=== PATIENT | female | born 1965 | race Caucasian/White ===

== ENCOUNTER → 2017-05-13 | Outpatient (CLI) | payer BC ==
--- NOTE | 2017-05-15 10:37 | MM ---
Reason for exam: screening (asymptomatic). Last mammogram was performed 3 years and 11 months ago. History: Patient is postmenopausal and is nulliparous. Physical Findings: A clinical breast exam by your physician is recommended on an annual basis and results should be correlated with mammographic findings. MG Screening Mammo w CAD Bilateral CC and MLO view(s) were taken. Prior study comparison: June 21, 2013, bilateral digital screening mammo w/CAD. June 03, 2012, mammogram, performed at [facility]. The breast tissue is heterogeneously dense. This may lower the sensitivity of mammography. Finding: There are stable typically benign milk of calcium, segmental calcifications in the upper quadrant, posterior position of the left breast seen on MLO view. No significant changes in finding since June 21, 2013 and June 03, 2012. ASSESSMENT: Benign, BI-RAD 2 RECOMMENDATION: Routine screening mammogram of both breasts in 1 year.
== END | disposition home or self-care (01) ==
LOC: RADMAMWWP 07:33
PROVIDERS: ATTEND Family Medicine
DX: Z12.31 Encounter for screening mammogram for malignant neoplasm of breast (principal)

== ENCOUNTER 2017-05-29 10:20 | Day surgery (SDC) | payer BC ==
[2017-05-27 09:57] VITALS: BMI 28.8
[~2017-05-29 10:20] MED LIST: LACTATED RINGERS 1,000 ML IV SCH
[2017-05-29 12:25] VITALS: TEMP 97.8
[2017-05-29] MEDS ORDERED: LIDOCAINE 1% 20 ML VIAL (10MG/ML) FOR IV START INTRADERMA ONE (12:36)
[2017-05-29] MEDS ORDERED: PROPOFOL 10 MG/ML 20 ML VIAL IV ONE (13:25)
--- NOTE | 2017-05-29 13:28 | P.GSHP ---
History of Present Illness H&P Date: 05/29/17 Chief Complaint: Screening colonoscopy This a 48-year-old female who is referred from Dr. Rosado. Patient presents today for screening colonoscopy. Past Medical History Past Medical History: No Reported History History of Any Multi-Drug Resistant Organisms: None Reported Past Surgical History: Hysterectomy Additional Past Surgical History / Comment(s): COLONOSCOPY Past Anesthesia/Blood Transfusion Reactions: Motion Sickness, Postoperative Nausea & Vomiting (PONV) Smoking Status: Never smoker - Past Family History Father Family Medical History: Cancer Sister(s) Family Medical History: Cancer Medications and Allergies Home Medications Medication Instructions Recorded Confirmed Type Cyclobenzaprine [Flexeril] 10 mg PO HS PRN 05/27/17 05/29/17 History traMADol HCL [Ultram] 50 mg PO Q6HR PRN 05/27/17 05/29/17 History Allergies Allergy/AdvReac Type Severity Reaction Status Date / Time No Known Allergies Allergy Verified 05/29/17 12:25 Surgical - Exam Vital Signs Temp Pulse Resp BP Pulse Ox 97.8 F 89 18 139/66 100 05/29/17 12:24 05/29/17 12:24 05/29/17 12:24 05/29/17 12:24 05/29/17 12:24 - General well developed, no distress - Eyes PERRL - ENT normal pinna - Neck no masses - Respiratory normal expansion - Cardiovascular Rhythm: regular - Abdomen Abdomen: soft, non tender Assessment and Plan Plan: We'll perform screening colonoscopy.
--- NOTE | 2017-05-29 13:47 | P.OP ---
Date of Procedure: 05/29/17 Preoperative Diagnosis: Screening colonoscopy Postoperative Diagnosis: Normal colon Procedure(s) Performed: colonoscopy Anesthesia: MAC Surgeon: Miles Reed Pathology: none sent Condition: stable Disposition: PACU Description of Procedure: PROCEDURE: The patient was placed on the endoscopy table in the lateral position. Digital rectal examination was performed which revealed no abnormalities. The prostate was symmetrical without nodules. Flexible colonoscope was then placed in the patient's anus and passed throughout the entire colon. The ileocecal valve was visualized. The cecum, ascending, transverse, descending and sigmoid colon were normal. The rectum was normal as well. There were no masses, polyps or diverticula noted in the entire colon. SUMMARY OF FINDINGS: Normal colonoscopy.
[2017-05-29 13:55] VITALS: RESP 16
[2017-05-29 14:08] VITALS: BP 139/79; PULSE 65
== END 2017-05-29 14:36 | disposition home or self-care (01) ==
LOC: ORWHC2ENDO 10:20
PROVIDERS: ATTEND Surgery
DX: Z12.11 Encounter for screening for malignant neoplasm of colon (principal); K62.1 Rectal polyp; Z90.710 Acquired absence of both cervix and uterus; Z79.899 Other long term (current) drug therapy
CPT/HCPCS: 45380; 88305; J2704

== ENCOUNTER → 2018-07-21 | Outpatient (CLI) | payer BC ==
--- NOTE | 2018-07-23 08:56 | MM ---
Reason for exam: screening (asymptomatic). Last mammogram was performed 1 year and 2 months ago. History: Patient is postmenopausal and is nulliparous. Physical Findings: A clinical breast exam by your physician is recommended on an annual basis and results should be correlated with mammographic findings. MG Screening Mammo w CAD Bilateral CC and MLO view(s) were taken. Prior study comparison: May 13, 2017, bilateral MG screening mammo w CAD. June 21, 2013, bilateral digital screening mammo w/CAD. The breast tissue is heterogeneously dense. This may lower the sensitivity of mammography. There is chronic nodularity in the left breast posterior inferiorly. No significant changes when compared with prior studies. ASSESSMENT: Benign, BI-RAD 2 RECOMMENDATION: Routine screening mammogram of both breasts in 1 year.
== END | disposition home or self-care (01) ==
LOC: RADMAMWWP 15:08
PROVIDERS: ATTEND Obstetrics & Gynecology
DX: Z12.31 Encounter for screening mammogram for malignant neoplasm of breast (principal)
CPT/HCPCS: 77067

== ENCOUNTER → 2020-03-01 | Outpatient (CLI) | payer BC ==
[2020-03-01 12:19] LABS: Basophils % (A) 0 %; Eosinophils % (A) 0 %; HCT 43.5 % (34.0-46.0); HGB 13.9 gm/dL (11.4-16.0); Lymphocytes # (A) 1.3 k/uL (1.0-4.8); Lymphocytes % (A) 18 %; MCH 31.6 pg (25.0-35.0); MCHC 31.9 g/dL (31.0-37.0); Mean Platelet Volume 7.6; Monocytes # (A) 0.3 k/uL (0-1.0); Monocytes % (A) 4 %; Neutrophils # (A) 5.5 k/uL (1.3-7.7); Neutrophils % (A) 76 %; Platelet Count 214 k/uL (150-450); RBC 4.39 m/uL (3.80-5.40); RDW 13.2 % (11.5-15.5); WBC 7.2 k/uL (3.8-10.6)
[2020-03-01 12:28] LABS: Potassium 4.7 mmol/L (3.5-5.1)
== END | disposition home or self-care (01) ==
LOC: LABPAT 10:24
PROVIDERS: ATTEND Orthopaedic Surgery
DX: Z01.818 Encounter for other preprocedural examination (principal); M23.92 Unspecified internal derangement of left knee
CPT/HCPCS: 36415; 80051; 85025; 93005

== ENCOUNTER 2020-03-15 06:02 | Day surgery (SDC) | payer BC ==
--- NOTE | 2020-03-14 13:50 | HP ---
HISTORY AND PHYSICAL DATE OF SURGERY: 03/15/2020 Constance Toscano is a 54-year-old patient seen with progressive left knee pain. We discussed options for treatment. She elected to proceed with left knee arthroscopy. Consent regarding the procedure was obtained. PAST MEDICAL HISTORY: Noncontributory. PAST SURGICAL HISTORY: Appendectomy, hysterectomy. DAILY MEDICATIONS: None. ALLERGIES: None. SOCIAL HISTORY: She denies tobacco use. PHYSICAL EVALUATION OF THE LEFT KNEE: Range of motion is -2/3-120. Mild effusion. Tenderness along the medial joint line. Positive medial Serena's. Ligaments stable. Hip rotation without pain. Distal neurovascular exam intact. RADIOGRAPHS OF THE LEFT KNEE: Revealed osteoarthritic changes. Left knee MRI revealed medial meniscal tear and osteoarthritic changes. IMPRESSION: 1. Internal derangement, left knee with medial meniscal tear. 2. Left knee osteoarthritis. PLAN: Left knee arthroscopy with partial meniscectomy, partial synovectomy and debridement. MMODL / IJN: [id number] /
[~2020-03-15 06:02] MED LIST changes: +DEXAMETHASONE SOD PHOSPHATE 10 MG/ML 1 ML VIAL IV ONE; +LIDOCAINE 1% (10MG/ML) FOR IV START INTRADERMA PRN; +ONDANSETRON 4 MG/2 ML VIAL IVP ONE
[2020-03-15] MEDS ORDERED: ONDANSETRON 4 MG/2 ML VIAL ONE (06:59)
[2020-03-15] MEDS ORDERED: SCOPOLAMINE 1.5MG/72HR PATCH TRANSDERM ONE (07:00)
[2020-03-15] MEDS ORDERED: LIDOCAINE 1% INJ 10MG/ML (20 ML MDV) ONE (07:20)
[2020-03-15] MEDS ORDERED: fentaNYL (PF) 50 MCG/ML 2 ML AMP ONE (07:20)
[2020-03-15] MEDS ORDERED: PROPOFOL 10 MG/ML 20 ML VIAL IV ONE (07:20)
[2020-03-15] MEDS ORDERED: MIDAZOLAM 2 MG/2 ML VIAL ONE (07:20)
[2020-03-15] MEDS ORDERED: BUPIVACAINE (PF) 0.25% 30 ML VIAL INTRAARTIC ONE ×2 (07:24→07:58)
[2020-03-15 08:12] VITALS: TEMP 96.9
[2020-03-15] MEDS: HYDROmorphone 0.5 MG/0.5 ML SYRINGE IVP PRN ×3 (08:16→08:44)
--- NOTE | 2020-03-15 08:17 | P.OP ---
Date of Procedure: 03/15/20 Preoperative Diagnosis: Internal derangement left knee Postoperative Diagnosis: 1. Tear medial meniscus left knee 2. Grade 4 chondromalacia medial femoral condyle left knee 3. Grade 2/3 chondromalacia patella left knee 4. Reactive synovitis medial, lateral and suprapatellar compartments left knee Procedure(s) Performed: 1. Arthroscopic partial medial meniscectomy left knee 2. Arthroscopic chondroplasty medial femoral condyle left knee 3. Arthroscopic chondroplasty patella left knee 4. Arthroscopic partial synovectomy medial, lateral and suprapatellar compartments left knee Anesthesia: EVETTEA, local Surgeon: Shayne Bernard Estimated Blood Loss (ml): 5 Pathology: none sent Condition: stable Disposition: PACU Indications for Procedure: 54 -year-old patient seen with progressive left knee pain. After treatment options were discussed, she elected to proceed with arthroscopy. Operative Findings: See description of procedure Description of Procedure: Patient was taken to the operative suite. Patient underwent a general anesthetic by the department of anesthesia. Patient was given preoperative antibiotics. The left lower extremity was placed in a well-padded arthroscopic leg jean. The left leg was prepped and draped in the normal sterile orthopedic fashion. A lateral parapatellar and suprapatellar incision was made. Trochars were inserted. Arthroscopy was initiated. Suprapatellar pouch revea led diffuse thick reactive synovitis. The patellofemoral joint appeared to articulate congruently. There was grade 2/3 chondromalacia of the patella and femoral sulcus with some osteochondral tears present. The scope was guided into the medial gutter. No loose bodies or plica were identified. The scope was then guided into the medial compartment. A medial parapatellar incision was made. Trocar inserted followed by probe. There was a complex tear posterior horn medial meniscus. There were grade 4 chondromalacia changes of both the medial femoral condyle and tibial plateau with areas of exposed bone as well as some areas of osteochondral tearing. There was thick reactive synovitis anteriorly. I performed a partial medial meniscectomy. I performed a chondroplasty of the medial femoral condyle. I performed a partial synovectomy decompressing the thick reactive synovitis. The residual meniscus was stable. There was good decompression of the synovitis. Scope and probe were then guided into the intercondylar notch. Cruciates were identified, probed and found to be stable. The scope and probe were then guided into lateral compartment. There were grade 1 chondromalacia changes of the lateral compartment with no osteochondral tears. The meniscus was stable. There was thick reactive synovitis anteriorly. I performed a partial synovectomy. There was good decompression of the synovitis. The scope was in guided back into the suprapatellar compartment. I introduced a motorized shaver into the suprapatellar compartment. I debrided some piecemeal fragments of meniscus I encountered. I performed a chondroplasty of the patella gained down to stable osteochondral tissue. I performed a partial synovectomy. Shaver was removed. I took one more look on the entire knee, no residual debris. Instruments were now removed from the joint. The joint was infiltrated with .25% Marcaine. Steri-Strips were applied to the portal sites. Sterile dressings were applied. The patient was placed into a TERI hose. No tourniquet was utilized. The patient was awakened, transferred to a bed and taken to recovery stable satisfactory condition.
[2020-03-15 08:40] VITALS: RESP 16
[2020-03-15] MEDS ORDERED: KETOROLAC 30 MG/ML 1 ML VIAL IVP ONE (08:40)
[2020-03-15] MEDS ORDERED: HYDROcodone/APAP 5-325MG 1 EACH TAB ONE (09:15)
[2020-03-15] MEDS ORDERED: HYDROcodone/APAP 5-325MG 1 EACH TAB PO ONE (09:16)
[2020-03-15 09:27] VITALS: BP 135/64; PULSE 65
== END 2020-03-15 10:12 | disposition home or self-care (01) ==
LOC: OR 06:02
PROVIDERS: ATTEND Orthopaedic Surgery
DX: S83.242A Other tear of medial meniscus, current injury, left knee, initial encounter (principal); X58.XXXA Exposure to other specified factors, initial encounter; M22.42 Chondromalacia patellae, left knee; M17.12 Unilateral primary osteoarthritis, left knee; M65.862 Other synovitis and tenosynovitis, left lower leg; Z90.710 Acquired absence of both cervix and uterus; Z98.890 Other specified postprocedural states; Z79.1 Long term (current) use of non-steroidal anti-inflammatories (NSAID); Z79.891 Long term (current) use of opiate analgesic; Z79.899 Other long term (current) drug therapy
CPT/HCPCS: 29881; 29876; J2250; J1100; J0690; J2405; J2001; J3010; J1885; J2704; J1170

== ENCOUNTER → 2020-07-24 | Outpatient (CLI) | payer BC | END | disposition home or self-care (01) | LOC: LABWHC1 16:41 | PROVIDERS: ATTEND Emergency Medicine | DX: Z20.828 Contact with and (suspected) exposure to other viral communicable diseases (principal) | CPT/HCPCS: U0003; C9803 ==

== ENCOUNTER → 2021-05-06 | Outpatient (CLI) | payer BC ==
[2021-05-06 11:15] LABS: Basophils # (A) 0.1 k/uL (0-0.2); Basophils % (A) 1 %; Eosinophils # (A) 0.1 k/uL (0-0.7); Eosinophils % (A) 1 %; HCT 45.6 % (34.0-46.0); HGB 14.5 gm/dL (11.4-16.0); Lymphocytes # (A) 1.2 k/uL (1.0-4.8); Lymphocytes % (A) 18 %; MCH 30.1 pg (25.0-35.0); MCHC 31.9 g/dL (31.0-37.0); MCV 94.5 fL (80.0-100.0); Mean Platelet Volume 7.7; Monocytes # (A) 0.3 k/uL (0-1.0); Monocytes % (A) 5 %; Neutrophils # (A) 5.1 k/uL (1.3-7.7); Neutrophils % (A) 74 %; Platelet Count 215 k/uL (150-450); RBC 4.82 m/uL (3.80-5.40); RDW 12.2 % (11.5-15.5); WBC 6.9 k/uL (3.8-10.6)
[2021-05-06 11:32] LABS: Potassium 4.4 mmol/L (3.5-5.1)
== END | disposition home or self-care (01) ==
LOC: LABPAT 09:50
PROVIDERS: ATTEND Orthopaedic Surgery
DX: Z01.818 Encounter for other preprocedural examination (principal); G56.01 Carpal tunnel syndrome, right upper limb
CPT/HCPCS: 36415; 80051; 85025; 93005

== ENCOUNTER 2021-05-15 09:53 | Day surgery (SDC) | payer BC ==
[2021-05-13 16:04] VITALS: BMI 24.5
--- NOTE | 2021-05-14 19:00 | HP ---
HISTORY AND PHYSICAL REASON FOR ADMISSION: Surgery scheduled for 05/15/2021 HISTORY OF PRESENT ILLNESS: Constance Toscano is a 55-year-old patient seen with symptomatic right carpal tunnel syndrome. We discussed options. She elected to proceed with decompression right median nerve. Consent obtained. PAST MEDICAL HISTORY: Noncontributory. SURGICAL HISTORY: Appendectomy, hysterectomy. DAILY MEDICATIONS: Aleve, ibuprofen. ALLERGIES: None. SOCIAL HISTORY: She denies current tobacco use. PHYSICAL EXAMINATION: Physical evaluation of the right hand: She has a positive carpal compression and carpal Tinel's causing numbness and tingling throughout the median nerve distribution. There is some subjective decreased sensation throughout the median nerve distribution. There is no tenderness along the A1 carmela areas. There is a good radial pulse. There is good perfusion distally. RADIOGRAPHS: Radiographs of the right hand reveals some osteoarthritic changes. EMG right upper extremity carpal tunnel syndrome. IMPRESSION: Right carpal tunnel syndrome. PLAN: Decompression, right median nerve. Surgery scheduled 05/15/2021. MMODL / IJN: [id number] /
[~2021-05-15 09:53] MED LIST changes: -DEXAMETHASONE SOD PHOSPHATE 10 MG/ML 1 ML VIAL IV ONE; +HYDROmorphone 0.5 MG/0.5 ML SYRINGE IVP PRN
[2021-05-15 10:21] VITALS: TEMP 97.4
[2021-05-15] MEDS ORDERED: fentaNYL (PF) 50 MCG/ML 2 ML AMP IVP ONE (11:40)
[2021-05-15 11:46] VITALS: RESP 16
[2021-05-15] MEDS ORDERED: PROPOFOL 10 MG/ML 20 ML VIAL IV ONE (12:09)
[2021-05-15] MEDS ORDERED: fentaNYL (PF) 50 MCG/ML 2 ML AMP ONE (12:09)
[2021-05-15] MEDS ORDERED: MIDAZOLAM 2 MG/2 ML VIAL ONE (12:09)
[2021-05-15] MEDS ORDERED: BUPIVACAINE (PF) 0.25% 30 ML VIAL SQ ONE ×2 (12:10→12:26)
--- NOTE | 2021-05-15 12:44 | P.OP ---
Date of Procedure: 05/15/21 Preoperative Diagnosis: Right carpal tunnel syndrome Postoperative Diagnosis: Right carpal tunnel syndrome Procedure(s) Performed: Decompression right median nerve Anesthesia: MAC, local Surgeon: Shayne Bernard Estimated Blood Loss (ml): 1 Pathology: none sent Condition: stable Disposition: PACU Indications for Procedure: 55-year-old patient seen with symptomatic right carpal tunnel syndrome. After treatment options were discussed, she elected to proceed with decompression right median nerve. Operative Findings: See description of procedure Description of Procedure: Patient was taken to the operative suite. She received preoperative IV antibiotics. She underwent IV sedation by the department of anesthesia A well- padded tourniquet placed proximal right upper extremity. Right upper extremity prepped and draped in the normal sterile orthopedic fashion. I infiltrated the proposed incision site with 10 mL quarter percent plain Marcaine. When sufficient local analgesia was noted the extremity was elevated and tourniquet insufflated to 250. I made an incision beginning at the distal volar wrist crease extending distally approximately 3 cm in line with the fourth metacarpal sharply through skin. I dissected down to the palmar fascia. I now incised the palmar fascia. This exposed the transverse carpal ligament. I now made a small incision through the central portion of the transverse carpal ligament. I completely released proximally and distally with blunt Metzenbaums. There was good complete release of the transverse carpal ligament and good decompression of the nerve. There was good hemostasis. The skin margins were proximal nylon suture. I applied sterile dressings. The tourniquet was released with immediate capillary refill of all digits noted. The patient was transferred to recovery in stable condition.
[2021-05-15 13:16] VITALS: BP 143/80; PULSE 53
== END 2021-05-15 13:45 | disposition home or self-care (01) ==
LOC: OR 09:53
PROVIDERS: ATTEND Orthopaedic Surgery
DX: G56.01 Carpal tunnel syndrome, right upper limb (principal)
CPT/HCPCS: 64721; J2405; J0690; J3010

== ENCOUNTER → 2021-07-25 | Outpatient (CLI) | payer BC ==
--- NOTE | 2021-07-25 15:22 | XR ---
EXAMINATION TYPE: XR hand complete bilateral DATE OF EXAM: 07/25/2021 COMPARISON: NONE HISTORY: Palpable abnormalities TECHNIQUE: Three views are submitted. FINDINGS: A mild narrowing the first MCP joint. Mild narrowing of all DIP joints bilaterally. No definite erosi ve changes. Chronic appearing deformity of the ulnar styloid on the left. No acute fracture or disloc ation. IMPRESSION: 1. Mild arthropathy there is to be a hypertrophic arthropathy. No erosive changes.
== END | disposition home or self-care (01) ==
LOC: RADXRMAIN 14:53
PROVIDERS: ATTEND Family Medicine
DX: M19.041 Primary osteoarthritis, right hand (principal); M19.042 Primary osteoarthritis, left hand

== ENCOUNTER → 2021-10-28 | Outpatient (CLI) | payer BC ==
--- NOTE | 2021-10-28 15:48 | XR ---
EXAMINATION TYPE: XR chest 2V DATE OF EXAM: 10/28/2021 COMPARISON: NONE HISTORY: R05.3 TECHNIQUE: Frontal and lateral views of the chest are obtained. FINDINGS: There is no focal air space opacity, pleural effusion, or pneumothorax seen. The cardiac silhouette size is within normal limits. The osseous structures are intact, there is a slight spina l curvature. IMPRESSION: No acute cardiopulmonary process.
== END | disposition home or self-care (01) ==
LOC: RADXRMAIN 14:19
PROVIDERS: ATTEND Family Medicine
DX: R05.3 Chronic cough (principal)
CPT/HCPCS: 71046

== ENCOUNTER → 2022-01-23 | Outpatient (CLI) | payer BC ==
--- NOTE | 2022-01-23 16:43 | XR ---
EXAMINATION TYPE: XR Hip Limited LT DATE OF EXAM: 01/23/2022 COMPARISON: NONE INDICATION: Sciatic pain. TECHNIQUE: 2 views of the left hip. FINDINGS: Mild degenerative changes of the left hip joint with slight narrowing of the joint space and minimal osteophytosis. No definite acute fracture line identified. No femoral head dislocation. Suspected left pelvic phlebo liths. IMPRESSION: Mild degenerative changes as described above.
== END | disposition home or self-care (01) ==
LOC: RADXRMAIN 15:46
PROVIDERS: ATTEND Family Medicine
DX: M16.12 Unilateral primary osteoarthritis, left hip (principal)
CPT/HCPCS: 73501

== ENCOUNTER → 2022-02-12 | Outpatient (CLI) | payer BC ==
--- NOTE | 2022-02-13 05:08 | MR ---
EXAMINATION TYPE: MR lumbar spine wo/w con DATE OF EXAM: 02/12/2022 COMPARISON: 05/11/2012 HISTORY: Discitis lumbar. Low back pain that radiates down left leg. CONTRAST: Standard multiplanar, multisequence MRI departmental protocol images were obtained without contrast a nd with 7 mL intravenous Gadavist gadolinium contrast. Multiplanar multi echo imaging of the lumbar spine without and subsequently with intravenous contrast . There is narrowing at L3-4 disc space with anterior mild subluxation. The neural foramina are fairly well maintained. No compression fracture. No evidence of focal bone destruction. There is some mild r eactive edema on both sides of the L3-4 disc. Contrast images show no pathologic enhancement. The pos terior elements are intact. No evidence of any significant lumbar spinal stenosis. The sacroiliac denice nts are intact. No paraspinal mass. IMPRESSION: There is L3-4 degenerative disc space narrowing and mild degenerative spondylolisthesis which is new compared to the old exam. No fracture seen. No spinal stenosis. No evidence of any increased fluid or enhancement to suggest discitis.
== END | disposition home or self-care (01) ==
LOC: RADMRIMAIN 14:54
PROVIDERS: ATTEND Family Medicine
DX: M51.26 Other intervertebral disc displacement, lumbar region (principal); M43.16 Spondylolisthesis, lumbar region
CPT/HCPCS: 72158; A9585

== ENCOUNTER → 2022-04-05 | Outpatient (CLI) | payer BC ==
[2022-04-05 16:32] LABS: Basophils # (A) 0.05 X 10*3/uL (0.00-0.10); Basophils % (A) 0.6 %; Eosinophils # (A) 0.07 X 10*3/uL (0.04-0.35); Eosinophils % (A) 0.8 %; HCT 46.2 % (37.2-46.3); Immature Grans, Automated 0.2 %; Lymphocytes # (A) 1.42 X 10*3/uL (0.90-5.00); Lymphocytes % (A) 16.7 %; MCH 29.8 pg (27.0-32.0); MCHC 32.5 g/dL (32.0-37.0); MCV 91.7 fL (80.0-97.0); Mean Platelet Volume 10.6 fL (9.5-12.2); Monocytes # (A) 0.46 X 10*3/uL (0.20-1.00); Monocytes % (A) 5.4 %; NRBC Per 100 WBC 0 /100 WBCS (0.0-0.0); Neutrophils % (A) 76.3 %; Platelet Count 213 X 10*3/uL (140-440); RBC 5.04 X 10*6/uL (4.10-5.20); RDW 12.8 % (11.5-14.5); WBC 8.52 X 10*3/uL (4.50-10.00)
[2022-04-05 16:47] LABS: Erythrocyte Sedimentation Rate 1 mm/Hr (0-30)
[2022-04-05 16:51] LABS: ALT 18 U/L (8-44); AST 17 U/L (13-35); African American GFR (CKD) 94.2 (60.0-200.0); Albumin 4.4 g/dL (3.8-4.9); Albumin/Globulin Ratio 2.44 (1.60-3.17); Alkaline Phosphatase 55 U/L (41-126); Blood Urea Nitrogen 20.4 mg/dL (9.0-27.0); Carbon Dioxide 24.5 mmol/L (20.0-27.5); Chloride 106 mmol/L (96-109); Chol/HDL Ratio 2.65 Ratio; Globulin 1.8 g/dL (1.6-3.3); Glucose 92 mg/dL (70-110); LDL Cholesterol,Calculated 129.7 mg/dL (0.0-131.0); Non-African American GFR(CKD) 81.3 (60.0-200.0); Sodium 141 mmol/L (135-145); Total Protein 6.2 g/dL (6.2-8.2); VLDL Calculation 12.92 mg/dL (5.00-40.00)
== END | disposition home or self-care (01) ==
LOC: LABWHC1 11:28
PROVIDERS: ATTEND Family Medicine
DX: Z00.00 Encounter for general adult medical examination without abnormal findings (principal); I10 Essential (primary) hypertension; Z79.899 Other long term (current) drug therapy
CPT/HCPCS: 36415; 80053; 80061; 83036; 84443; 85025; 85652

== ENCOUNTER → 2024-03-30 | Outpatient (CLI) | payer BC ==
--- NOTE | 2024-04-26 20:19 | MR ---
Site ID synapse default Patient Constance Toscano ID [id number] Age/Gender: 58Y, F Order # N/A Procedure MR lumbar w/wo con Date 03/30/2024 2:39:18 PM EXAMINATION TYPE: MR lumbar spine wo/w con DATE OF EXAM: 04/08/2024 COMPARISON: MRI lumbar spine 02/12/2022, 05/11/2012 HISTORY: Lower back pain, sciatica right side TECHNIQUE: Multiplanar, multisequence images of the lumbar spine were acquired without and with 6.5 mL intraveno us Gadavist gadolinium contrast. Findings: Vertebral body heights are maintained. Grade 1 anterolisthesis of L3 on L4 is unchanged. Type II Micky c changes involving the inferior endplate of L3 and superior endplate of L4. Remaining bone marrow si gnal is unremarkable. The tip of the conus medullaris is at T12-L1 and signal intensity of the includ ed spinal cord is normal. Multilevel disc desiccation most pronounced at L2-L5. Individual levels: T12-L1: No evidence of disc herniation or significant central canal stenosis. No neuroforaminal steno sis. L1-L2: No evidence of disc herniation or significant central canal stenosis. No neuroforaminal stenos is. L2-L3: Broad-based disc bulge with minimal central canal stenosis. No neuroforaminal stenosis.. L3-L4: Grade 1 anterolisthesis with uncovering of the disc. Broad-based disc bulge with mild central canal stenosis. The mentum flavum buckling and facet arthropathy demonstrated mild bilateral neural f oraminal stenosis with left greater than right. L4-L5: Broad-based disc bulge with annular fissure. No significant central canal stenosis. Mild bilat eral facet arthropathy without neural foraminal stenosis. L5-S1: The disc is round along its posterior edge without rhonda herniation. No significant central ca nal stenosis. Bilateral facet arthropathy without significant neural foraminal stenosis. The post-contrast views do not show any pathological enhancement. IMPRESSION: Overall stable examination from MR lumbar spine 02/12/2022 with mild degenerative disc disease and gra de 1 anterolisthesis at L3 on L4.
== END | disposition home or self-care (01) ==
LOC: RADMRIMAIN 15:18
PROVIDERS: ATTEND Family Medicine
DX: M43.16 Spondylolisthesis, lumbar region (principal); M51.16 Intervertebral disc disorders with radiculopathy, lumbar region
CPT/HCPCS: 72158; A9585

== ENCOUNTER → 2024-04-07 | Outpatient (CLI) | payer BC ==
--- NOTE | 2024-05-02 13:49 | XR ---
Patient: Constance Toscano Ordering Physician: Unknown, Unknown ID: [id number] Phone, Pager: Phone : N/A Pager: N/A : 1965 Age/Gender: 58Y, F Primary Location: N/A Procedure: XR Hip Complete R T Study Date: 04/07/2024 4:44:00 PM EXAMINATION TYPE: Hip X-Ray Complete Right DATE OF EXAM: 04/07/2024 CLINICAL HISTORY: pain TECHNIQUE: AP and frogleg views of the right hip are obtained. COMPARISON: None. FINDINGS: There is no acute fracture/dislocation evident. The joint space appears moderately narro wed. The overlying soft tissue appears unremarkable. IMPRESSION: 1. There is no acute fracture or dislocation. ICD 10 NO FRACTURE, INITIAL EVALUATION
== END | disposition home or self-care (01) ==
LOC: RADXRMAIN 16:11
PROVIDERS: ATTEND Family Medicine
DX: M25.551 Pain in right hip (principal)
CPT/HCPCS: 73502

== ENCOUNTER → 2024-05-09 | Outpatient (CLI) | payer BC ==
--- NOTE | 2024-05-09 15:25 | CT ---
EXAMINATION TYPE: CT hip RT wo con DATE OF EXAM: 05/09/2024 COMPARISON: None HISTORY: Trochanteric bursitis, RT hip, pain, sciatica CT DLP: 461.64 mGycm Automated exposure control for dose reduction was used. FINDINGS: There is marked narrowing of the superolateral aspect of the right hip joint with moderate hypertroph ic spurring. There is subchondral sclerosis of the acetabulum. There is no fracture or focal intraosseous abnormality. IMPRESSION: 1. No acute traumatic injury 2. Marked osteoarthritic change of the right hip. [facility], Workstation: [facility], 05/09/2024 3:22 PM
--- NOTE | 2024-05-09 15:27 | CT ---
EXAMINATION TYPE: CT pelvis wo con DATE OF EXAM: 05/09/2024 COMPARISON: None HISTORY: Trochanteric bursitis, primary RT side CT DLP: 453.20 mGycm Automated exposure control for dose reduction was used. FINDINGS: There is no pelvic or hip fracture. There is marked osteoarthritis of the right hip. The left hip joint space is well-preserved. There is no diastasis or sclerosis of the SI joints pubic symphysis. There is moderate to marked dege nerative disc disease at the L3-4 level. There are no focal intraosseous abnormalities with the exception of a bone island in the right femora l head. IMPRESSION: 1. UNREMARKABLE PELVIS. 2. MARKED OSTEOARTHRITIS OF THE RIGHT HIP. 3. UNREMARKABLE LEFT HIP. [facility], , 05/09/2024 3:25 PM
== END | disposition home or self-care (01) ==
LOC: RADCTMAIN 14:24
PROVIDERS: ATTEND Family Medicine
DX: M70.61 Trochanteric bursitis, right hip
CPT/HCPCS: 72192

== ENCOUNTER → 2024-05-16 | Outpatient (CLI) | payer BC ==
[2024-05-16 11:08] VITALS: BP 171/99; PULSE 87; RESP 16; TEMP 98.7
--- NOTE | 2024-05-16 12:37 | P.PAINPG ---
PQRS Measure Charge Sheet Comment: HISTORY OF PRESENT ILLNESS: A 58 yr old female as a referral from Dr Cullen presents today w severe and chronic LBP > 3 mo secondary to radiculopathy, spondylosis and facet arthropathy without myelopathy for evaluation. Pt states pain level is provoked at 9 /10 in intensity, constant, localized in the R lumbar spine, predominantly axial, throbbing in character w occasional shooting pain towards the L buttocks and R thigh. Pain is provoked by bending, lifting. Pain is alleviated by physician guided home exercises 3-4 times weekly since 04/26/24, medications ([place], Tyl), topical [place], repositioning and rest . PMH: OA PSH: R CTR (2020), L Knee Arthroscopy (2019), Hysterectomy, Colonoscopy (2016), SH: Negative x3 FH: Fa- CA. Sis- CA All: See list Meds: See list REVIEW OF ORGAN SYSTEMS: CONSTITUTIONAL: No fevers or chills. No recent weight loss. NEUROLOGICAL: + numbness and tingling along the distal extremities. No seizure disorders or headaches. MUSCULOSKELETAL: + pain PSYCHIATRIC: Denies current depression or suicidal thoughts. Physical Examinations : Constitutional : Cooperative , not in acute distress . Neurologic : Cranial nerve II to XII intact. No focal neurological deficits. Psychiatric : alert & oriented x 3. Matching mood & appropriate affect. Judgment & insight intact. Musculoskeletal : Cervical Spine Motor strength in the deltoid and biceps: Normal right side. Normal Left side Motor strength biceps and the wrist extensors: Normal right side . Normal left side Motor strength in the triceps muscle: Normal right side. Normal left side Deep tendon reflexes: Normal at the biceps. Normal at Brachioradialis. Normal at triceps Vertebral body tenderness to deep palpation over Cervical facet loading test: positive bilaterally Spurling test: positive bilaterally Neck distraction test: positive bilaterally Hina sign: positive bilaterally Lumbar spine Motor strength lower extremities ,thigh and legs 5/5 Right side , 5/5 Left side Deep tendon reflexes : Normal Knee Jerk. Normal Ankle Jerk Vertebral body tenderness over L3 Malloy Test positive BL L3-L4 Lumbar facet Loading Test: positive Right / positive Left Range of motion of the lumbar spine Flexion 30 degrees, extension 10 degrees Straight Leg Raise test: Left/ Right positive at degrees Duc test: positive right / positive left. Severe tenderness over the Sacroiliac joint on the Right / Left sides Gaenslen test: positive bilaterally Seated flexion test: positive bilaterally. Sacral spine : Severe tenderness over the Sacroiliac joint: right side / left side Range of motion: Flexion of the lumbar spine <60 degrees Range of motion: Extension of the lumb ar spine <20 degrees Gaenslen's Test positive Duc test: positive right side / left side Thigh Thrust Test Sacral Thrust Test Imaging: MRI non contrast lumbar spine from 03/30/24 reviewed Assessment/ Plan : L3-L4 radiculopathy Recommendation of R paramedian JACOB L3-L4 #1. May benefit from R SI in the near future. Risks, benefits of procedure discussed and patient verbalized understanding. Admits to anti- coagulant use or medical history of diabetes. Protocol for discontinuation/ continuation of medications troy procedure discussed. All questions answered. I have spent greater than 30 minutes on patient care today. Dr Luna was available by phone for the evaluation of this patient. The time was used to review the medical records including relevant urine studies and Prescription history (MAPs), review of the available imaging, evaluation and examination of the patient, coordination of care with the medical staff and if applicable referring physicians, as well as creation of the medical record PQRS Narrative: Smoking Status Never smoker Home Medications: Ambulatory Orders Zolpidem Tartrate [Ambien] 5 mg PO HS 03/12/20 Acetaminophen [Tylenol Extra Strength] 500 - 1,000 mg PO Q6H PRN 05/13/21 HYDROcodone/APAP 5-325MG [[place] 5-325] 1 tab PO Q6HR PRN 3 Days #10 tab 05/15/21 Ascorbic Acid [Vitamin C] 05/16/24 Lisdexamfetamine Dimesylate [Vyvanse] 30 % .ROUTE 05/16/24 Meloxicam [Mobic] 05/16/24 Potassium Gluconate [Potassium (2.5 MEQ = 600 MG)] 600 mg PO 05/16/24 Pyridoxine HCl (Vitamin B6) [Vitamin B-6] 100 mg PO 05/16/24 Controlled Substance Measures - Controlled Substance Measures Is patient prescribed a controlled substance at discharge?: No
== END | disposition home or self-care (01) ==
LOC: PNWHC3 10:31
PROVIDERS: ATTEND Specialist
DX: M51.16 Intervertebral disc disorders with radiculopathy, lumbar region (principal)
CPT/HCPCS: 99211

== ENCOUNTER 2024-06-21 12:26 | Day surgery (SDC) | payer BC ==
[2024-06-16 16:07] VITALS: BMI 25.4
[~2024-06-21 12:26] MED LIST changes: -HYDROmorphone 0.5 MG/0.5 ML SYRINGE IVP PRN; -LIDOCAINE 1% (10MG/ML) FOR IV START INTRADERMA PRN; -ONDANSETRON 4 MG/2 ML VIAL IVP ONE
[2024-06-21 14:16] VITALS: TEMP 97.6
[2024-06-21] MEDS ORDERED: IOPAMIDOL M300 15ML VIAL ONE (14:59)
[2024-06-21] MEDS ORDERED: ROPIVACAINE 5MG/ML 20ML VIAL ONE (14:59)
[2024-06-21] MEDS ORDERED: methylPREDNISolone ACETATE 80 MG/ML 1 ML VIAL ONE (14:59)
--- NOTE | 2024-06-21 15:18 | P.PCN ---
Description of Procedure: PREOPERATIVE DIAGNOSIS: 1- Lumbar Degenerative Disc Diseases 2-Lumbar spondylosis with Facet arthropathy without myelopathy. 3-lumbar spinal stenosis POSTOPERATIVE DIAGNOSIS: 1-lumbar degenerative disc disease. 2-lumbar spondylosis with facet arthropathy without myelopathy. 3-lumbar spinal stenosis. PROCEDURE Injection of radio contrast material into L3-4 interspace, interpretation of epidurogram, injection of steroid at L3-4 epidural space under fluoroscopic guidance. ANESTHESIA: Lidocaine 1% subcutaneously. In OR continuous pulse ox, EKG, blood pressure and verbal communication was maintained with the patient. EBL: Minimal PROCEDURE INDICATION: Before the procedure were discussed with the patient detailed procedure, alternatives, complications including infection, bleeding, nerve damage, paralysis all of which could be permanent. Patient understands and all questions were answered. PROCEDURE DESCRIPTION : After getting consent, patient in OR in prone position. Back was prepped with chlorhexidine and draped in sterile fashion. After injecting 10 mL of 1% lidocaine subcutaneously, a 20-gauge Tuohy needle was introduced at L3-4 interspace with loss of resistance technique using a syringe filled with air. Negative CSF, negative blood, negative paresthesia. Needle position was confirmed with AP and lateral view of the fluoroscope. After repeat negative aspiration 2 mL of Omnipaque 200 water soluble contrast was injected. Contrast was noted in the epidural space. No contrast was noted into intrathecal or intravascular space. After repeat negative aspiration 6 mL solution was injected intermittently which consists of 5 mL of preservative-free normal saline mixed with 1 mL of 80 mg Depo-Medrol. Needle was withdrawn intact. Skin was cleansed and Band-Aids was applied. DISPOSITION / PLANS: The patient tolerated the procedure well. No complication. The patient was placed in a supine position and transferred to the recovery area in a stable condition for observation. There was no evidence of lower extremity motor or sensory deficit after the procedure. Patient was discharged from the recovery room after meeting discharge criteria. Home discharge instructions were given to the patient by the staff. The patient was reexamined prior to discharge. The patient will schedule a follow up in the clinic in 2-4 weeks.
--- NOTE | 2024-06-21 15:23 | FL ---
EXAMINATION TYPE: FL guided pain mgmt statistic DATE OF EXAM: 06/21/2024 HISTORY: Fluoroscopy time Total dose area product (DAP) in uGy*m?, mGy*cm? (or similar): 0.87116 IMPRESSION: 1. Fluoroscopy time. [facility], , 06/21/2024 3:21 PM
[2024-06-21 15:24] VITALS: RESP 20
[2024-06-21 15:41] VITALS: BP 144/85; PULSE 82
== END 2024-06-21 15:42 | disposition home or self-care (01) ==
LOC: ORPAIN 12:26
PROVIDERS: ATTEND Pain Medicine Interventional Pain Medicine
DX: M47.816 Spondylosis without myelopathy or radiculopathy, lumbar region (principal); M48.061 Spinal stenosis, lumbar region without neurogenic claudication
CPT/HCPCS: 62323

== ENCOUNTER → 2024-07-04 | Outpatient (CLI) | payer BC ==
[2024-07-04 14:44] VITALS: BP 154/86; PULSE 89; RESP 16
--- NOTE | 2024-07-04 15:15 | P.PAINPG ---
PQRS Measure Charge Sheet Comment: HISTORY OF PRESENT ILLNESS: A 58 yr old female presents today w severe and chronic LBP > 3 mo secondary to radiculopathy, spondylosis and facet arthropathy without myelopathy for evaluation s/p R paramedian JACOB L3-L4 #1. Pt states she experienced 60 % pain relief x 2 wks s/p procedure. Pt states pain level is provoked at 4 /10 in intensity, constant, localized in the R lumbar spine, predominantly axial, throbbing in character w occasional shooting pain towards the RLE. Pain is provoked by bending, lifting. Pain is alleviated by physician guided home exercises 3-4 times weekly since 04/26/24, medications, topical , repositioning and rest . Interventional procedures include JACOB L3-L4 x1 Medications include [place], Tyl, [place] [facility] REVIEW OF ORGAN SYSTEMS: CONSTITUTIONAL: No fevers or chills. No recent weight loss. NEUROLOGICAL: + numbness and tingling along the distal extremities. No seizure disorders or headaches. MUSCULOSKELETAL: + pain PSYCHIATRIC: Denies current depression or suicidal thoughts. Physical Examinations : Constitutional : Cooperative , not in acute distress . Neurologic : Cranial nerve II to XII intact. No focal neurological deficits. Psychiatric : alert & oriented x 3. Matching mood & appropriate affect. Judgment & insight intact. Musculoskeletal : Cervical Spine Motor strength in the deltoid and biceps: Normal right side. Normal Left side Motor strength biceps and the wrist extensors: Normal right side . Normal left side Motor strength in the triceps muscle: Normal right side. Normal left side Deep tendon reflexes: Normal at the biceps. Normal at Brachioradialis. Normal at triceps Vertebral body tenderness to deep palpation over Cervical facet loading test: positive bilaterally Spurling test: positive bilaterally Neck distraction test: positive bilaterally Hina sign: positive bilaterally Lumbar spine Motor strength lower extremities ,thigh and legs 5/5 Right side , 5/5 Left side Deep tendon reflexes : Normal Knee Jerk. Normal Ankle Jerk Vertebral body tenderness over L3 Malloy Test positive BL L3-L4 Lumbar facet Loading Test: positive Right / positive Left Range of motion of the lumbar spine Flexion 30 degrees, extension 10 degrees Straight Leg Raise test: Left/ Right positive at degrees Duc test: positive right / positive left. Severe tenderness over the Sacroiliac joint on the Right / Left sides Gaenslen test: positive bilaterally Seated flexion test: positive bilaterally. Sacral spine : Severe tenderness over the Sacroiliac joint: right side / left side Range of motion: Flexion of the lumbar spine <60 degrees Range of motion: Extension of the lumbar spine <20 degrees Gaenslen's Test positive Duc test: positive right side / left side Thigh Thrust Test Sacral Thrust Test Imaging: MRI non contrast lumbar spine from 03/30/24 reviewed Assessment/ Plan : L3-L4 radiculopathy Will manage residual pain and may RTC on an as needed basis. All questions answered. I have spent greater than 30 minutes on patient care today. Dr Luna was available by phone for the evaluation of this patient. The time was used to review the medical records including relevant urine studies and Prescription history (MAPs), review of the available imaging, evaluation and examination of the patient, coordination of care with the medical staff and if applicable ref erring physicians, as well as creation of the medical record PQRS Narrative: Smoking Status Never smoker Hx Alcohol Use (MH) No Home Medications: Ambulatory Orders Ascorbic Acid [Vitamin C] 500 mg PO DAILY 05/16/24 Lisdexamfetamine Dimesylate [Vyvanse] 30 mg PO DAILY 05/16/24 Meloxicam [Mobic] 15 mg PO DAILY 05/16/24 Potassium Gluconate [Potassium (2.5 MEQ = 600 MG)] 600 mg PO DAILY 05/16/24 Pyridoxine HCl (Vitamin B6) [Vitamin B-6] 100 mg PO DAILY 05/16/24 Eszopiclone [Lunesta] 3 mg PO HS 06/13/24 HYDROcodone/APAP 7.5-325MG [[place] 7.5-325] 1 tab PO Q6HR PRN 06/13/24 Magnesium 250 mg PO DAILY 06/13/24 Controlled Substance Measures - Controlled Substance Measures Is patient prescribed a controlled substance at discharge?: No
== END ==
LOC: PNWHC3 14:18
PROVIDERS: ATTEND Specialist
DX: M54.16 Radiculopathy, lumbar region (principal)
CPT/HCPCS: 99211

== ENCOUNTER 2024-09-03 16:39 | Inpatient (IN) | payer BC ==
--- NOTE | 2024-09-03 17:07 | ED ---
Nausea/Vomiting/Diarrhea HPI - General Chief complaint: Nausea/Vomiting/Diarrhea Stated complaint: abd pain,vomiting Time Seen by Provider: 09/03/24 17:05 Source: patient, RN notes reviewed Mode of arrival: ambulatory Limitations: no limitations - History of Present Illness Initial comments: 58-year-old female in for evaluation of abdominal pain x 4 days with associated nausea and vomiting. Describes a sharp pain around the umbilicus with bloating and constant vomiting. States she has not been able to keep food down since Thursday morning. Has not had a bowel movement for 4 days. History of appendectomy and partial and total hysterectomy. No other significant health conditions. Denies blood thinners. - Related Data Home Medications Medication Instructions Recorded Confirmed Ascorbic Acid [Vitamin C] 500 mg PO DAILY 05/16/24 06/16/24 Lisdexamfetamine Dimesylate 30 mg PO DAILY 05/16/24 06/16/24 [Vyvanse] Meloxicam [Mobic] 15 mg PO DAILY 05/16/24 06/16/24 Potassium Gluconate [Potassium 600 mg PO DAILY 05/16/24 06/16/24 (2.5 MEQ = 600 MG)] Pyridoxine HCl (Vitamin B6) 100 mg PO DAILY 05/16/24 06/16/24 [Vitamin B-6] Eszopiclone [Lunesta] 3 mg PO HS 06/13/24 06/16/24 HYDROcodone/APAP 7.5-325MG [[place] 1 tab PO Q6HR PRN 06/13/24 06/16/24 7.5-325] Magnesium 250 mg PO DAILY 06/13/24 06/16/24 Allergies Allergy/AdvReac Type Severity Reaction Status Date / Time No Known Allergies Allergy Verified 09/03/24 16:45 Review of Systems ROS Statement: Those systems with pertinent positive or pertinent negative responses have been documented in the HPI. ROS Other: All systems not noted in ROS Statement are negative. Past Medical History Past Medical History: Musculoskeletal Disorder Additional Past Medical History / Comment(s): bulging disc, right hip pain, History of Any Multi-Drug Resistant Organisms: None Reported Past Surgical History: Appendectomy, Hysterectomy, Orthopedic Surgery Additional Past Surgical History / Comment(s): COLONOSCOPY, left knee arthroscopy, right CTS, PAIN CLINIC PROCEDURES YEARS AGO Past Anesthesia/Blood Transfusion Reactions: Motion Sickness, Postoperative Nausea & Vomiting (PONV) Past Psychological History: ADD/ADHD Smoking Status: Never smoker Past Alcohol Use History: Occasional Past Drug Use History: None Reported - Past Family History Father Family Medical History: Cancer Sister(s) Family Medical History: Cancer General Exam Limitations: no limitations General appearance: alert, in no apparent distress Head exam: Present: atraumatic, normocephalic, normal inspection Eye exam: Present: normal appearance, PERRL, EOMI. Absent: scleral icterus, conjunctival injection, periorbital swelling ENT exam: Present: normal exam, mucous membranes moist GI/Abdominal exam: Present: soft, normal bowel sounds. Absent: distended, tenderness, guarding, rebound, rigid Back exam: Absent: CVA tenderness (R), CVA tenderness (L) Neurological exam: Present: alert, oriented X3 Psychiatric exam: Present: normal affect, normal mood Skin exam: Present: warm, dry, intact, normal color. Absent: rash Course Vital Signs 09/03/24 09/03/24 09/03/24 16:40 17:41 17:50 Temperature 97.6 F Pulse Rate 128 H 77 77 Respiratory 16 16 15 Rate Blood Pressure 150/91 O2 Sat by Pulse 97 Oximetry 09/03/24 09/03/24 09/03/24 18:00 18:10 18:31 Temperature Pulse Rate 80 89 81 Respiratory 17 21 12 Rate Blood Pressure O2 Sat by Pulse Oximetry 09/03/24 09/03/24 09/03/24 18:40 18:50 19:00 Temperature Pulse Rate 84 89 80 Respiratory 18 25 H 21 Rate Blood Pressure O2 Sat by Pulse Oximetry 09/03/24 19:04 Temperature Pulse Rate Respiratory Rate Blood Pressure 150/80 O2 Sat by Pulse Oximetry Medical Decision Making - Medical Decision Making Was pt. sent in by a medical professional or institution (, PA, ATHLETIC MONITOR, urgent care, hospital, or [facility]...) When possible be specific @ -No Did you speak to anyone other than the patient for history (EMS, parent, family, police, friend...)? What history was obtained from this source @ -No Did you review nursing and triage notes (agree or disagree)? Why? @ -I reviewed and agree with nursing and triage notes Were old charts reviewed (outside hosp., previous admission, EMS record, old EKG, old radiological studies, urgent care reports/EKG's, [facility] records)? Report findings @ -No old charts were reviewed Differential Diagnosis (chest pain, altered mental status, abdominal pain women, abdominal pain men, vaginal bleeding, weakness, fever, dyspnea, syncope, headache, dizziness, GI bleed, back pain, seizure, CVA, palpatations, mental health, musculoskeletal)? @ -Differential Abdominal Pain Men: Appendicitis, cholecystitis, diverticulosis, ischemic bowel, pancreatitis, hepatitis, UTI, gastroenteritis, AAA, incarcerated hernia, bowel obstruction, co nstipation, inflammatory bowel, hepatitis, peptic ulcer disease, splenic infarction, perforated viscus, testicular torsion, this is not meant to be an all-inclusive list EKG interpreted by me (3pts min.). @ -None X-rays interpreted by me (1pt min.). @ -None done CT interpreted by me (1pt min.). @ -CT abdomen pelvis reveals small bowel obstruction with transition point in low anterior abdomen possibly due to internal hernia U/S interpreted by me (1pt. min.). @ -None done What testing was considered but not performed or refused? (CT, X-rays, U/S, labs)? Why? @ -None What meds were considered but not given or refused? Why? @ -None Did you discuss the management of the patient with other professionals (professionals i.e. , PA, ATHLETIC MONITOR, lab, RT, psych nurse, social welfare research worker, control chemist, teacher, motor equipment commanding officer, case repairer)? Give summary @ -I spoke with Dr. Waite on-call general surgeon who accepts admission and requests consultation to medicine Was smoking cessation discussed for >3mins.? @ -No Was critical care preformed (if so, how long)? @ -No Were there social determinants of health that impacted care today? How? (Homelessness, low income, unemployed, alcoholism, drug addiction, transpor tation, low edu. Level, literacy, decrease access to med. care, skilled nursing, rehab)? @ -No Was there de-escalation of care discussed even if they declined (Discuss DNR or withdrawal of care, Hospice)? DNR status @ -No What co-morbidities impacted this encounter? (DM, HTN, Smoking, COPD, CAD, Cancer, CVA, ARF, Chemo, Hep., AIDS, mental health diagnosis, sleep apnea, morbid obesity)? @ -None Was patient admitted / discharged? Hospital course, mention meds given and route, prescriptions, significant lab abnormalities, going to OR and other pertinent info. @ - Admitted. 58-year-old female presenting for abdominal pain x 4 days with nausea/vomiting. Patient is tachycardic at 128 bpm, otherwise vital signs within acceptable limits. Patient is provided with IV fluids, analgesics, antiemetics. Lab work remarkable for leukocytosis of 12.6, hyponatremia 128, creatinine 1.37, BUN 54. CT abdomen pelvis reveals small bowel obstruction with transition point in low center of abdomen. Results discussed with patient. I spoke with Dr. Waite who accepts for small bowel obstruction. Order for NG tube placed. Patient started on lactated Ringer's. Case was discussed with my ED attending Dr. Oliveira. Undiagnosed new problem with uncertain prognosis? @ -No Drug Therapy requiring intensive monitoring for toxicity (Heparin, Nitro, Insulin, Cardizem)? @ -No Were any procedures done? @ -No Diagnosis/symptom? @ -Small bowel obstruction Acute, or Chronic, or Acute on Chronic? @ -Acute Uncomplicated (without systemic symptoms) or Complicated (systemic symptoms)? @ -Complicated Side effects of treatment? @ -No Exacerbation, Progression, or Severe Exacerbation? @ -No Poses a threat to life or bodily function? How? (Chest pain, [place], [place], pneumonia, PE, COPD, DKA, ARF, appy, cholecystitis, CVA, Diverticulitis, Homicidal, Suicidal, threat to staff... and all critical care pts) @ -Yes - Lab Data Result diagrams: 09/03/24 17:25 09/03/24 17:25 Lab Results 09/03/24 09/03/24 09/03/24 Range/Units 17:25 17:25 17:25 WBC 12.6 H (3.8-10.6) k/uL RBC 5.84 H (3.80-5.40) m/uL Hgb 18.0 H (11.4-16.0) gm/dL Hct 51.8 H (34.0-46.0) % MCV 88.8 (80.0-100.0) fL MCH 30.7 (25.0-35.0) pg MCHC 34.6 (31.0-37.0) g/dL RDW 11.8 (11.5-15.5) % Plt Count 283 (150-450) k/uL MPV 6.9 Neutrophils % 76 % Lymphocytes % 15 % Monocytes % 7 % Eosinophils % 1 % Basophils % 1 % Neutrophils # 9.5 H (1.3-7.7) k/uL Lymphocytes # 1.8 (1.0-4.8) k/uL Monocytes # 0.9 (0-1.0) k/uL Eosinophils # 0.1 (0-0.7) k/uL Basophils # 0.1 (0-0.2) k/uL PT 11.3 (10.0-12.5) sec INR 1.0 (<1.2) APTT 22.2 (22.0-30.0) sec Sodium 128 L (137-145) mmol/L Potassium 3.5 (3.5-5.1) mmol/L Chloride 80 L (98-107) mmol/L Carbon Dioxide 33 H (22-30) mmol/L Anion Gap 15 mmol/L BUN 54 H (7-17) mg/dL Creatinine 1.37 H (0.52-1.04) mg/dL Est GFR (CKD-EPI)AfAm 49 (>60 ml/min/1.73 sqM) Est GFR (CKD-EPI)NonAf 42 (>60 ml/min/1.73 sqM) Glucose 137 H (74-99) mg/dL Plasma Lactic Acid Kris (0.7-2.0) mmol/L Calcium 10.6 H (8.4-10.2) mg/dL Magnesium 2.1 (1.6-2.3) mg/dL Total Bilirubin 1.1 (0.2-1.3) mg/dL AST 23 (14-36) U/L ALT 19 (4-34) U/L Alkaline Phosphatase 74 (38-126) U/L Total Protein 8.0 (6.3-8.2) g/dL Albumin 5.2 H (3.5-5.0) g/dL Lipase 274 (23-300) U/L 09/03/24 Range/Units 17:25 WBC (3.8-10.6) k/uL RBC (3.80-5.40) m/uL Hgb (11.4-16.0) gm/dL Hct (34.0-46.0) % MCV (80.0-100.0) fL MCH (25.0-35.0) pg MCHC (31.0-37.0) g/dL RDW (11.5-15.5) % Plt Count (150-450) k/uL MPV Neutrophils % % Lymphocytes % % Monocytes % % Eosinophils % % Basophils % % Neutrophils # (1.3-7.7) k/uL Lymphocytes # (1.0-4.8) k/uL Monocytes # (0-1.0) k/uL Eosinophils # (0-0.7) k/uL Basophils # (0-0.2) k/uL PT (10.0-12.5) sec INR (<1.2) APTT (22.0-30.0) sec Sodium (137-145) mmol/L Potassium (3.5-5.1) mmol/L Chloride (98-107) mmol/L Carbon Dioxide (22-30) mmol/L Anion Gap mmol/L BUN (7-17) mg/dL Creatinine (0.52-1.04) mg/dL Est GFR (CKD-EPI)AfAm (>60 ml/min/1.73 sqM) Est GFR (CKD-EPI)NonAf (>60 ml/min/1.73 sqM) Glucose (74-99) mg/dL Plasma Lactic Acid Kris 1.6 (0.7-2.0) mmol/L Calcium (8.4-10.2) mg/dL Magnesium (1.6-2.3) mg/dL Total Bilirubin (0.2-1.3) mg/dL AST (14-36) U/L ALT (4-34) U/L Alkaline Phosphatase (38-126) U/L Total Protein (6.3-8.2) g/dL Albumin (3.5-5.0) g/dL Lipase (23-300) U/L Disposition Clinical Impression: Small bowel obstruction Disposition: ADMITTED IP TO THIS [facility] Referrals: Jc Cullen MD [Primary Care Provider] - 1-2 days Time of Disposition: 19:16
[2024-09-03] MEDS: KETOROLAC 15 MG/ML 1 ML VIAL IVP STA (17:34)
[2024-09-03] MEDS: ONDANSETRON 4 MG/2 ML VIAL IVP STA (17:34)
[2024-09-03] MEDS: SODIUM CHLORIDE 0.9% 1,000 ML IV STA ×2 (17:35→18:34)
[2024-09-03 17:39] LABS: Basophils # (A) 0.1 k/uL (0-0.2); Basophils % (A) 1 %; Eosinophils # (A) 0.1 k/uL (0-0.7); Eosinophils % (A) 1 %; HCT 51.8 % (34.0-46.0); Lymphocytes # (A) 1.8 k/uL (1.0-4.8); Lymphocytes % (A) 15 %; MCH 30.7 pg (25.0-35.0); MCHC 34.6 g/dL (31.0-37.0); MCV 88.8 fL (80.0-100.0); Mean Platelet Volume 6.9; Monocytes # (A) 0.9 k/uL (0-1.0); Monocytes % (A) 7 %; Neutrophils # (A) 9.5 k/uL (1.3-7.7); Neutrophils % (A) 76 %; Platelet Count 283 k/uL (150-450); RBC 5.84 m/uL (3.80-5.40); RDW 11.8 % (11.5-15.5); WBC 12.6 k/uL (3.8-10.6)
[2024-09-03 17:54] LABS: ALT 19 U/L (4-34); AST 23 U/L (14-36); African American GFR (CKD) 49 (>60 ml/min/1.73 sqM); Albumin 5.2 g/dL (3.5-5.0); Alkaline Phosphatase 74 U/L (38-126); Anion Gap 15 mmol/L; Blood Urea Nitrogen 54 mg/dL (7-17); Calcium 10.6 mg/dL (8.4-10.2); Carbon Dioxide 33 mmol/L (22-30); Chloride 80 mmol/L (98-107); Glucose 137 mg/dL (74-99); Lipase 274 U/L (23-300); Magnesium 2.1 mg/dL (1.6-2.3); Non-African American GFR(CKD) 42 (>60 ml/min/1.73 sqM); Potassium 3.5 mmol/L (3.5-5.1); Sodium 128 mmol/L (137-145); Total Bilirubin 1.1 mg/dL (0.2-1.3)
[2024-09-03 18:02] LABS: Partial Thromboplastin Time 22.2 sec (22.0-30.0); Prothrombin Time 11.3 sec (10.0-12.5)
--- NOTE | 2024-09-03 18:41 | CT ---
EXAMINATION TYPE: CT abdomen pelvis w con DATE OF EXAM: 09/03/2024 6:33 PM COMPARISON: CT abdomen pelvis most recent from 05/09/2024 CLINICAL INDICATION: Female, 58 years old with history of abdominal pain, acute, nonlocalized; Abdomi nal pain with n/v x 4 days TECHNIQUE: Axial CT abdomen pelvis w con;Sagittal and coronal reformats were created on a separate w orkstation. Contrast used:80 mL of Isovue 300 with IV Contrast, (none if empty) Oral contrast used: without Oral Contrast (none if empty) CT DLP: 694.9 mGycm, Automated exposure control for dose reduction was used. FINDINGS: LOWER CHEST: Unremarkable ABDOMEN LIVER: Unremarkable GALLBLADDER AND BILE DUCTS: Unremarkable. PANCREAS: Unremarkable. SPLEEN: Unremarkable. ADRENAL GLANDS: Unremarkable. KIDNEYS AND URETERS: No evidence of hydronephrosis or renal calculus. The ureters are unremarkable. PELVIS BLADDER: No evidence for wall thickening or mass given limitations of exam. REPRODUCTIVE: Unremarkable. ABDOMEN & PELVIS STOMACH AND BOWEL: Multiple loops of small bowel are distended with transition point series 201 image 60 and series 202 image 33 with nondistended bowel extending from this point. Bowel dilation up tor 41 mm. PERITONEUM/RETROPERITONEUM: No evidence of pneumoperitoneum or free fluid. VASCULATURE: No evidence of aortic aneurysm. MUSCULOSKELETAL: No acute osseous abnormalities LYMPH NODES: No gross evidence for lymphadenopathy. SOFT TISSUE/ABDOMINAL WALL: Unremarkable IMPRESSION: Small bowel obstruction with transition point in the low center abdomen possibly due to internal marvin ia. [facility], , 09/03/2024 6:38 PM
[2024-09-03] MEDS ORDERED: NALOXONE 0.4 MG/ML 1 ML VIAL IV PRN (19:13)
[2024-09-03] MEDS: ONDANSETRON 4 MG/2 ML VIAL IVP PRN (20:00)
[2024-09-03] MEDS: MORPHINE SULFATE 4 MG/ML SYRINGE IV PRN (20:03)
[2024-09-03] MEDS: LACTATED RINGERS 1,000 ML IV ONE (20:07)
--- NOTE | 2024-09-03 20:39 | XR ---
EXAMINATION TYPE: XR chest 1V portable DATE OF EXAM: 09/03/2024 8:33 PM COMPARISON: Chest radiographs from 10/28/2021 CLINICAL INDICATION: Female, 58 years old with history of NG tube Placement; [facility] TECHNIQUE: XR chest 1V portable Frontal view of the chest. FINDINGS: Lungs/Pleura: There is no evidence of pleural effusion, focal consolidation, or pneumothorax. Pulmonary vascularity: Unremarkable. Heart/mediastinum: Cardiomediastinal silhouette is unremarkable. Musculoskeletal: No acute osseous pathology. Other findings: None Lines/Tubes: Nasogastric tube with its distal tip and side-port projecting under the diaphragm. IMPRESSION: No acute cardiopulmonary disease/process. [facility], , 09/03/2024 8:37 PM
[2024-09-03 21:56] LABS: Appearance,Urine Clear (Clear); Bilirubin,Urine Negative (Negative); Blood,Urine Negative (Negative); Color,Urine Light Yellow; Glucose,Urine (UA) Negative (Negative); Ketones,Urine 1+ (Negative); Leukocyte Esterase,Urine Negative (Negative); Nitrite,Urine Negative (Negative); PH, Urine 6.5 (5.0-8.0); Protein,Urine Trace (Negative); Specific Gravity,Urine >1.050 (1.001-1.035); Urobilinogen,Urine <2.0 mg/dL (<2.0)
[2024-09-03] MEDS: KETOROLAC 15 MG/ML 1 ML VIAL IVP PRN (22:20)
[2024-09-03] MEDS: ZOLPIDEM 5 MG TAB PO SCH (22:40)
--- NOTE | 2024-09-04 13:55 | XR ---
EXAMINATION TYPE: XR abdomen 2V DATE OF EXAM: 09/04/2024 1:33 PM COMPARISON: CT CLINICAL INDICATION: Female, 58 years old with history of f/iu SBO; [facility] TECHNIQUE: Two views of the abdomen were obtained. FINDINGS: Nasogastric tube and satisfactory position. There remains dilated loops of small bowel with gaseous distention throughout the abdomen up to 5.0 cm. There is no evidence for organomegaly or pne umoperitoneum. The osseous structures are intact. No abnormal calcifications are present. Fecal mat erial and gas are demonstrated throughout the colon and rectum. IMPRESSION: Redemonstration of multiple distended loops of bowel throughout the abdomen. Nasogastric tube in plac e [facility], , 09/04/2024 1:53 PM
--- NOTE | 2024-09-04 16:31 | P.CONS ---
History of Present Illness - Reason for Consult Consult date: 09/04/24 Medical management Requesting physician: Steffen Waiet - Chief Complaint Abdominal pain - History of Present Illness I am covering for Jc Cullen. He is unwell. Pleasant 58-year-old patient, follows with Dr. Jc Cullen. In fairly good health. Takes medications for insomnia. Pending right hip surgery by Dr. Bernard. And lower back herniated disc. 5 days ago on Thursday patient started having abdominal discomfort at work. Progressed to get worse. That in the evening she started having vomiting. Since then abdominal pain has persisted. With vomiting. Last bowel movement 5 days ago. She did call her PCP. In the ER CT scan showed a small bowel obstruction. NG tube to suction was placed. Somewhat better since then. No fever no chills. Prior abdominal surgery includes surgery in the uterus and appendectomy. Otherwise patient is fairly active. No cardiac symptoms. Review of systems: GEN.: Tired EYES: None HEENT: None NECK: None RESPIRATORY: None CARDIOVASCULAR: None GASTROINTESTINAL: [As above GENITOURINARY: None MUSCULOSKELETAL: Back and right hip pain LYMPHATICS: None HEMATOLOGICAL: None PSYCHIATRY: None NEUROLOGICAL: None Social history: Works at the [employer]. No smoking. Alcohol sometimes. . Physical examination: VITAL SIGNS: 98.1, 73, 18, 116 x 74, 94% room air GENERAL: [BMI 24.2, laying in bed awake. EYES: Pupils equal. Conjunctiva jean pierre l. HEENT: External appearance of nose and ears normal, oral cavity grossly normal. NG tube to suction. NECK: JVD not raised; masses not palpable. HEART: First and second heart sounds are normal; no edema. LUNGS: Respiratory rate normal; clear to auscultation. ABDOMEN: Soft, mid abdominal tenderness. Slightly hyperactive bowels. r, liver spleen not palpable, no masses palpable. PSYCH: Alert and oriented x3; mood and affect jean pierre l. MUSCULOSKELETAL:No Clubbing/cyanosis;muscles-grossly intact NEUROLOGICAL: Cranial nerves grossly intact; no facial asymmetry, power and sensation grossly intact. LYMPHATICS: No lymph nodes palpable in the axilla and neck INVESTIGATIONS, reviewed in the clinical context: Abdominal x-ray film personally reviewed by me [September 04] multiple distended loops of bowel throughout the abdomen. September 03: White count 12.6 hemoglobin 18 platelets 283 sodium 128 potassium 3.5 BUN 54 creatinine 1.[address] abdomen pelvis [September 03] multiple loops of small bowel are distended with transition points noted. Bowel dilatation 41 mm. Assessment plan: -Acute small bowel obstruction with symptoms starting about 5 days ago. Progressively getting worse. Last bowel movement was 5 days ago. Vomiting pres ent. NG tube to suction done. Slight improvement. X-ray from today still shows small bowel obstruction. Follow-up with general surgery. No flatus -Right hip primary osteoarthritis pending surgery by Dr. Bernard Pain medication as needed -Lower lumbar herniated disc. Pain medication as needed -Leukocytosis likely from hemoconcentration. No obvious clinical evidence of infection -Hyponatremia, hypovolemia from vomiting. Saline -Acute kidney injury, combination of ATN and prerenal. IV fluids. Follow labs -Hypercalcemia from volume contraction IV fluids -Full code Care was discussed patient at the bedside. Questions answered. Past Medical History Past Medical History: Musculoskeletal Disorder Additional Past Medical History / Comment(s): bulging disc, right hip pain, History of Any Multi-Drug Resistant Organisms: None Reported Past Surgical History: Appendectomy, Hysterectomy, Orthopedic Surgery Additional Past Surgical History / Comment(s): COLONOSCOPY, left knee arthroscopy, right CTS, PAIN CLINIC PROCEDURES YEARS AGO Past Anesthesia/Blood Transfusion Reactions: Postoperative Nausea & Vomiting (PONV) Past Psychological History: ADD/ADHD Smoking Status: Never smoker Past Alcohol Use History: Occasional Past Drug Use History: None Reported - Past Family History Father Family Medical History: Cancer Sister(s) Family Medical History: Cancer Medications and Allergies Home Medications Medication Instructions Recorded Confirmed Type Lisdexamfetamine Dimesylate 30 mg PO DAILY 05/16/24 09/03/24 History [Vyvanse] Meloxicam [Mobic] 15 mg PO DAILY 05/16/24 09/03/24 History Eszopiclone [Lunesta] 3 mg PO HS 06/13/24 09/03/24 History HYDROcodone/APAP 10-325MG [[place] 1 tab PO TID PRN 09/03/24 09/03/24 History 10-325] Allergies Allergy/AdvReac Type Severity Reaction Status Date / Time No Known Allergies Allergy Verified 09/03/24 19:29 Physical Exam Vitals: Vital Signs Temp Pulse Pulse Resp BP BP Pulse Ox 09/04/24 13:46 98.1 F 73 18 116/74 94 L 09/04/24 06:50 98.1 F 82 17 128/77 96 09/04/24 02:00 98.7 F 95 20 114/71 93 L 09/03/24 22:15 98.4 F 82 18 144/82 94 L 09/03/24 20:31 101 H 18 155/95 98 09/03/24 19:04 150/80 09/03/24 19:00 80 21 09/03/24 18:50 89 25 H 09/03/24 18:40 84 18 09/03/24 18:31 81 12 09/03/24 18:10 89 21 09/03/24 18:00 80 17 09/03/24 17:50 77 15 09/03/24 17:41 77 16 09/03/24 16:40 97.6 F 128 H 16 150/91 97 Intake and Output 09/04/24 09/04/24 09/04/24 06:59 14:59 22:59 Intake Total 0 0 Output Total 300 200 Balance -300 -200 Intake: Oral 0 0 Output: Gastric Drainage 100 200 Urine 200 Other: # Voids 2 Results CBC & Chem 7: 09/03/24 17:25 09/03/24 17:25 Labs: Abnormal Lab Results - Last 24 Hours (Table) 09/03/24 09/03/24 09/03/24 Range/Units 17:25 17:25 21:22 WBC 12.6 H (3.8-10.6) k/uL RBC 5.84 H (3.80-5.40) m/uL Hgb 18.0 H (11.4-16.0) gm/dL Hct 51.8 H (34.0-46.0) % Neutrophils # 9.5 H (1.3-7.7) k/uL Sodium 128 L (137-145) mmol/L Chloride 80 L (98-107) mmol/L Carbon Dioxide 33 H (22-30) mmol/L BUN 54 H (7-17) mg/dL Creatinine 1.37 H (0.52-1.04) mg/dL Glucose 137 H (74-99) mg/dL Calcium 10.6 H (8.4-10.2) mg/dL Albumin 5.2 H (3.5-5.0) g/dL Ur Specific [place] >1.050 H (1.001-1.035) Urine Protein Trace H (Negative) Urine Ketones 1+ H (Negative)
--- NOTE | 2024-09-04 16:56 | P.GSHP ---
History of Present Illness H&P Date: 09/04/24 58-year-old female evaluated for abdominal pain x 4 days with associated nausea and vomiting. Describes a sharp pain around the umbilicus with bloating and constant vomiting. States she has not been able to keep food down since Thursday morning. Has not had a bowel movement for 4 days. History of appendectomy and partial and total hysterectomy. No other significant health conditions. Denies blood thinners. CT-AP shows small bowel obstruction. Review of Systems ROS Statement: Those systems with pertinent positive or pertinent negative responses have been documented in the HPI. ROS Other: All systems not noted in ROS Statement are negative. Past Medical History Past Medical History: Musculoskeletal Disorder Additional Past Medical History / Comment(s): bulging disc, right hip pain, History of Any Multi-Drug Resistant Organisms: None Reported Past Surgical History: Appendectomy, Hysterectomy, Orthopedic Surgery Additional Past Surgical History / Comment(s): COLONOSCOPY, left knee arthroscopy, right CTS, PAIN CLINIC PROCEDURES YEARS AGO Past Anesthesia/Blood Transfusion Reactions: Motion Sickness, Postoperative Nausea & Vomiting (PONV) Past Psychological History: ADD/ADHD Smoking Status: Never smoker Past Alcohol Use History: Occasional Past Drug Use History: None Reported - Past Family History Father Family Medical History: Cancer Sister(s) Family Medical History: Cancer General Exam Limitations: no limitations General appearance: alert, in no apparent distress Head exam: Present: atraumatic, normocephalic, normal inspection Eye exam: Present: normal appearance, PERRL, EOMI. Absent: scleral icterus, conjunctival injection, periorbital swelling ENT exam: Present: normal exam, mucous membranes moist GI/Abdominal exam: Present: soft, normal bowel sounds. Absent: distended, tenderness, guarding, rebound, rigid Back exam: Absent: CVA tenderness (R), CVA tenderness (L) Neurological exam: Present: alert, oriented X3 Psychiatric exam: Present: normal affect, normal mood Skin exam: Present: warm, dry, intact, normal color. Absent: rash 58 year old female with Small Bowel Obstruction -NPO -NGT-LIS -IV fluids -Nausea Control -Will plan for SBFT if patient does not start passing gas Steffen Waite [facility] [phone] Past Medical History Past Medical History: Musculoskeletal Disorder Additional Past Medical History / Comment(s): bulging disc, right hip pain, History of Any Multi-Drug Resistant Organisms: None Reported Past Surgical History: Appendectomy, Hysterectomy, Orthopedic Surgery Additional Past Surgical History / Comment(s): COLONOSCOPY, left knee arthroscopy, right CTS, PAIN CLINIC PROCEDURES YEARS AGO Past Anesthesia/Blood Transfusion Reactions: Postoperative Nausea & Vomiting (PONV) Past Psychological History: ADD/ADHD Smoking Status: Never smoker Past Alcohol Use History: Occasional Past Drug Use History: None Reported - Past Family History Father Family Medical History: Cancer Sister(s) Family Medical History: Cancer Medications and Allergies Home Medications Medication Instructions Recorded Confirmed Type Lisdexamfetamine Dimesylate 30 mg PO DAILY 05/16/24 09/03/24 History [Vyvanse] Meloxicam [Mobic] 15 mg PO DAILY 05/16/24 09/03/24 History Eszopiclone [Lunesta] 3 mg PO HS 06/13/24 09/03/24 History HYDROcodone/APAP 10-325MG [[place] 1 tab PO TID PRN 09/03/24 09/03/24 History 10-325] Allergies Allergy/AdvReac Type Severity Reaction Status Date / Time No Known Allergies Allergy Verified 09/03/24 19:29 Surgical - Exam Vital Signs Temp Pulse Resp BP Pulse Ox 97.6 F 128 H 16 150/91 97 09/03/24 16:40 09/03/24 16:40 09/03/24 16:40 09/03/24 16:40 09/03/24 16:40 Results - Labs 09/03/24 17:25 09/03/24 17:25 Abnormal Lab Results - Last 24 Hours (Table) 09/03/24 09/03/24 09/03/24 Range/Units 17:25 17:25 21:22 WBC 12.6 H (3.8-10.6) k/uL RBC 5.84 H (3.80-5.40) m/uL Hgb 18.0 H (11.4-16.0) gm/dL Hct 51.8 H (34.0-46.0) % Neutrophils # 9.5 H (1.3-7.7) k/uL Sodium 128 L (137-145) mmol/L Chloride 80 L (98-107) mmol/L Carbon Dioxide 33 H (22-30) mmol/L BUN 54 H (7-17) mg/dL Creatinine 1.37 H (0.52-1.04) mg/dL Glucose 137 H (74-99) mg/dL Calcium 10.6 H (8.4-10.2) mg/dL Albumin 5.2 H (3.5-5.0) g/dL Ur Specific [place] >1.050 H (1.001-1.035) Urine Protein Trace H (Negative) Urine Ketones 1+ H (Negative) Diabetes panel 09/03/24 Range/Units 17:25 Sodium 128 L (137-145) mmol/L Potassium 3.5 (3.5-5.1) mmol/L Chloride 80 L (98-107) mmol/L Carbon Dioxide 33 H (22-30) mmol/L BUN 54 H (7-17) mg/dL Creatinine 1.37 H (0.52-1.04) mg/dL Glucose 137 H (74-99) mg/dL Calcium 10.6 H (8.4-10.2) mg/dL AST 23 (14-36) U/L ALT 19 (4-34) U/L Alkaline Phosphatase 74 (38-126) U/L Total Protein 8.0 (6.3-8.2) g/dL Albumin 5.2 H (3.5-5.0) g/dL Calcium panel 09/03/24 Range/Units 17:25 Calcium 10.6 H (8.4-10.2) mg/dL Albumin 5.2 H (3.5-5.0) g/dL Pituitary panel 09/03/24 Range/Units 17:25 Sodium 128 L (137-145) mmol/L Potassium 3.5 (3.5-5.1) mmol/L Chloride 80 L (98-107) mmol/L Carbon Dioxide 33 H (22-30) mmol/L BUN 54 H (7-17) mg/dL Creatinine 1.37 H (0.52-1.04) mg/dL Glucose 137 H (74-99) mg/dL Calcium 10.6 H (8.4-10.2) mg/dL Adrenal panel 09/03/24 Range/Units 17:25 Sodium 128 L (137-145) mmol/L Potassium 3.5 (3.5-5.1) mmol/L Chloride 80 L (98-107) mmol/L Carbon Dioxide 33 H (22-30) mmol/L BUN 54 H (7-17) mg/dL Creatinine 1.37 H (0.52-1.04) mg/dL Glucose 137 H (74-99) mg/dL Calcium 10.6 H (8.4-10.2) mg/dL Total Bilirubin 1.1 (0.2-1.3) mg/dL AST 23 (14-36) U/L ALT 19 (4-34) U/L Alkaline Phosphatase 74 (38-126) U/L Total Protein 8.0 (6.3-8.2) g/dL Albumin 5.2 H (3.5-5.0) g/dL
[2024-09-04] MEDS: LACTATED RINGERS 1,000 ML IV SCH (17:21)
[2024-09-04] MEDS: ENOXAPARIN 40 MG/0.4 ML SYRINGE SQ SCH (17:21)
[2024-09-05 05:31] LABS: African American GFR (CKD) >90 (>60 ml/min/1.73 sqM); Anion Gap 7 mmol/L; Blood Urea Nitrogen 26 mg/dL (7-17); Calcium 8.2 mg/dL (8.4-10.2); Carbon Dioxide 31 mmol/L (22-30); Chloride 94 mmol/L (98-107); Glucose 73 mg/dL (74-99); Non-African American GFR(CKD) >90 (>60 ml/min/1.73 sqM); Sodium 132 mmol/L (137-145)
[2024-09-05] MEDS: POTASSIUM CHLORIDE ER 20 MEQ TAB.ER PO STA (06:24)
[2024-09-05 09:32] LABS: Basophils % (A) 0 %; Eosinophils % (A) 1 %; HCT 38.7 % (34.0-46.0); Lymphocytes # (A) 0.9 k/uL (1.0-4.8); Lymphocytes % (A) 16 %; MCH 30.9 pg (25.0-35.0); MCHC 33.7 g/dL (31.0-37.0); MCV 91.5 fL (80.0-100.0); Mean Platelet Volume 7.3; Monocytes # (A) 0.5 k/uL (0-1.0); Monocytes % (A) 8 %; Neutrophils # (A) 4.3 k/uL (1.3-7.7); Neutrophils % (A) 74 %; Platelet Count 144 k/uL (150-450); RBC 4.23 m/uL (3.80-5.40); RDW 11.7 % (11.5-15.5); WBC 5.9 k/uL (3.8-10.6)
[2024-09-05 09:34] LABS: HGB 13.1 gm/dL (11.4-16.0)
--- NOTE | 2024-09-05 14:17 | P.PN ---
Subjective Progress Note Date: 09/05/24 SURGICAL PROGRESS NOTE CHIEF COMPLAINT: SBO HISTORY OF PRESENT ILLNESS: Patient had flatus last night. Has had no nausea or vomiting. She reports her overall abdominal pain and distention is improving. Her NG tube accidentally came out during the shower. Patient had 650 out through the NG tube last night and 250 this morning. Past surgical history includes hysterectomy and appendectomy. Afebrile. WBC is down from 12.6-5.9 Hgb 13.1 potassium 3.0 and being replaced creatinine normalized at 0.67 PHYSICAL EXAM: VITAL SIGNS: Reviewed. GENERAL: Well-developed in no acute distress. ABDOMEN: Soft. Mildly distended. Nontender. NEUROLOGIC: Alert and oriented. Cranial nerves II through XII grossly intact. ASSESSMENT: 1. Small bowel obstruction PLAN: -Small bowel follow-through with Gastrografin ordered for evaluation of SBO -Keep patient n.p.o. -Okay to keep NG tube out -Continue IV fluids -Potassium replaced by medicine service Physician Utility Lineman note has been reviewed by physician. Signing provider agrees with the documented findings, assessment, and plan of care. Attestation Patient seen and examined at bedside. Prior to exam, her nasogastric tube did fall out. Patient states that she had some flatus yesterday, however no further bowel function today. Denying any nausea or vomiting and states that her abdominal distention is improving. Plan for small bowel follow-through with Gastrografin was made and this was performed with contrast making it into the colon. Patient began having multiple bowel movements afterwards. Patient was advanced to clear liquid diet. Ruiz Chakraborty, Objective - Vital Signs Vital signs: Vital Signs Temp 98.7 F 09/05/24 06:46 Pulse 85 09/05/24 06:46 Resp 15 09/05/24 06:46 BP 164/80 09/05/24 06:46 Pulse Ox 92 L 09/05/24 06:46 FiO2 Intake & Output 09/04/24 09/05/24 09/05/24 18:59 06:59 18:59 Intake Total 1000 Output Total 200 700 150 Balance 800 -700 -150 Intake: Intake, IV Titration 1000 Amount Lactated Ringers 1,000 ml 250 @ 125 mls/hr IV .Q8H [facility] Rx#:[id number] Lactated Ringers 1,000 ml 750 @ 75 mls/hr IV .[id number] Rx#:[id number] Oral 0 Output: Gastric Drainage 200 700 150 Other: Voiding Method Toilet # Voids 2 1 - Labs CBC & Chem 7: 09/05/24 08:52 09/05/24 04:11 Labs: Abnormal Lab Results - Last 24 Hours (Table) 09/05/24 09/05/24 Range/Units 04:11 08:52 Plt Count 144 L (150-450) k/uL Lymphocytes # 0.9 L (1.0-4.8) k/uL Sodium 132 L (137-145) mmol/L Potassium 3.0 L (3.5-5.1) mmol/L Chloride 94 L (98-107) mmol/L Carbon Dioxide 31 H (22-30) mmol/L BUN 26 H (7-17) mg/dL Glucose 73 L (74-99) mg/dL Calcium 8.2 L (8.4-10.2) mg/dL
--- NOTE | 2024-09-05 14:33 | FL ---
EXAMINATION TYPE: FL small bowel follow through DATE OF EXAM: 09/05/2024 2:20 PM COMPARISON: Correlation CT 09/03/2024 CLINICAL INDICATION: Female, 58 years old with history of follow up on SBO, abdominal pain, , Total Fluoroscopy Time: None 5 images obtained. Total Fluoro Dose: 0 mGycm2 FINDINGS: The patient was given a total of 480 mL Gastrografin to ingest orally. Images of the patient approxim ately 15 minutes to ingest the desired volume. Following administration of oral contrast, serial film s were carried out to 30 minutes. However, even on the first image at 15 minutes, contrast has reache d the right side of the colon. We note loops in the mid and left side of the abdomen relatively diste nded up to 4.4 cm versus 4.6 cm on the patient's recent CT. There is a reduced caliber of distal thir d small bowel loops but no discrete transition point or obstruction seen. IMPRESSION: Small bowel transit time into the colon was 30 minutes. Given some residual distended small bowel loo ps in the left side of the abdomen (4.4 cm now versus 4.[address]) but with successful passag e into the colon, findings are favored to represent resolving/resolved small bowel obstruction. Follo w-up as clinically indicated. [facility], , 09/05/2024 2:31 PM
--- NOTE | 2024-09-05 15:07 | P.PN ---
Progress Note - Text Progress Note Date: 09/05/24 - Chief Complaint Abdominal pain - History of Present Illness I am covering for Jc Cullen. He is unwell. Pleasant 58-year-old patient, follows with Dr. Jc Cullen. In fairly good health. Takes medications for insomnia. Pending right hip surgery by Dr. Bernard. And lower back herniated disc. 5 days ago on Thursday patient started having abdominal discomfort at work. Progressed to get worse. That in the evening she started having vomiting. Since then abdominal pain has persisted. With vomiting. Last bowel movement 5 days ago. She did call her PCP. In the ER CT scan showed a small bowel obstruction. NG tube to suction was placed. Somewhat better since then. No fever no chills. Prior abdominal surgery includes surgery in the uterus and appendectomy. Otherwise patient is fairly active. No cardiac symptoms. September 05: Patient was in the bathroom NG tube caught pulled out. Slight abdominal discomfort. Passed little flatus overnight. This morning small bowel follow-through ordered by surgery.No nausea vomiting. Small bowel follow-through done this afternoon showed some passage into the colon of the contrast. Slight decrease in the size of bowel loops possibility of resolving small bowel obstruction. Morning patient has been NPO. Discussed with the patient and at the bedside. Continue IV fluids. Drop in platelets to 144. Start stop subcu heparin. Active Medications Enoxaparin Sodium (Enoxaparin 40 Mg/0.4 Ml Syringe) 40 mg SQ DAILY [facility] Last Admin: 09/05/24 08:12 Dose: 40 mg Lactated Ringer's (Lactated Ringers) 1,000 mls @ 125 mls/hr IV .Q8H [facility] Last Admin: 09/05/24 08:13 Dose: 125 mls/hr Ketorolac Tromethamine (Ketorolac 15 Mg/Ml 1 Ml Vial) 15 mg IVP Q6HR PRN PRN Reason: Moderate Pain (Scale 4 to 6) Stop: 09/06/24 19:14 Last Admin: 09/05/24 08:12 Dose: 15 mg Morphine Sulfate (Morphine Sulfate 4 Mg/Ml Syringe) 4 mg IV Q4HR PRN PRN Reason: Severe Pain (Scale 7 to 10) Last Admin: 09/05/24 04:44 Dose: 4 mg Naloxone HCl (Naloxone 0.4 Mg/Ml 1 Ml Vial) 0.2 mg IV Q2M PRN PRN Reason: Opioid Reversal Ondansetron HCl (Ondansetron 4 Mg/2 Ml Vial) 4 mg IVP Q8HR PRN PRN Reason: Nausea And Vomiting Last Admin: 09/04/24 15:47 Dose: 4 mg Zolpidem Tartrate (Zolpidem 5 Mg Tab) 5 mg PO HS MINDY Last Admin: 09/04/24 21:08 Dose: 5 mg Social history: Works at the [employer]. No smoking. Alcohol sometimes. . Physical examination: VITAL SIGNS: 98.7, 85, 15, 164/80, 92% room air GENERAL: [BMI 24.2, lying bed, not in distress EYES: Pupils equal. Conjunctiva jean pierre l. HEENT: External appearance of nose and ears normal, oral cavity grossly normal. NG tube to suction. NECK: JVD not raised; masses not palpable. HEART: First and second heart sounds are normal; no edema. LUNGS: Respiratory rate normal; clear to auscultation. ABDOMEN: Soft, mid abdominal tenderness. All sounds present. r, liver spleen not palpable, no masses palpable. PSYCH: Alert and oriented x3; mood and affect jean pierre l. MUSCULOSKELETAL:No Clubbing/cyanosis;muscles-grossly intact INVESTIGATIONS, reviewed in the clinical context: Small bowel follow-through: [September 05] passage of contrast into the colon. Probably resolving SBO September 05: White count 5.9 hemoglobin 13.1 platelets 144 Abdominal x-ray film personally reviewed by me [September 04] multiple distended loops of bowel throughout the abdomen. September 03: White count 12.6 hemoglobin 18 platelets 283 sodium 128 potassium 3.5 BUN 54 creatinine 1.[address] abdomen pelvis [September 03] multiple loops of small bowel are distended with transition points noted. Bowel dilatation 41 mm. Assessment plan: -Acute small bowel obstruction with symptoms starting about 5 days ago. Progressively getting worse. Last bowel movement was 5 days ago. Vomiting present. NG tube to suction done. Slight improvement. X-ray from today still shows small bowel obstruction. September 05: NG tube dislodged. Small bowel follow-through showing contrast into the colon. Currently n.p.o. -Right hip primary osteoarthritis pending surgery by Dr. Bernard Pain medication as needed -Lower lumbar herniated disc. Pain medication as needed -Leukocytosis likely from hemoconcentration. No obvious clinical evidence of infection -Hyponatremia, hypovolemia from vomiting. Saline -Acute kidney injury, combination of ATN and prerenal.: Resolved IV fluids. Follow labs -Hypokalemia, replace potassium -Hypercalcemia from volume contraction: Better IV fluids -Full code Small bowel through surged passage of contrast into the colon. Hopefully per surgery patient can be restarted on clear liquids. Some drop in platelets. Stop Lovenox. Repeat in the morning. Replace potassium. Past Medical History Past Medical History: Musculoskeletal Disorder Additional Past Medical History / Comment(s): bulging disc, right hip pain, History of Any Multi-Drug Resistant Organisms: None Reported Past Surgical History: Appendectomy, Hysterectomy, Orthopedic Surgery Additional Past Surgical History / Comment(s): COLONOSCOPY, left knee arthroscopy, right CTS, PAIN CLINIC PROCEDURES YEARS AGO Past Anesthesia/Blood Transfusion Reactions: Postoperative Nausea & Vomiting (PONV) Past Psychological History: ADD/ADHD Smoking Status: Never smoker Past Alcohol Use History: Occasional Past Drug Use History: None Reported
[2024-09-06 13:27] VITALS: BP 167/93; PULSE 104; RESP 18; TEMP 97.9
--- NOTE | 2024-09-06 13:49 | P.PN ---
Progress Note - Text Progress Note Date: 09/06/24 - Chief Complaint Abdominal pain - History of Present Illness I am covering for Jc Cullen. He is unwell. Pleasant 58-year-old patient, follows with Dr. Jc Cullen. In fairly good health. Takes medications for insomnia. Pending right hip surgery by Dr. Bernard. And lower back herniated disc. 5 days ago on Thursday patient started having abdominal discomfort at work. Progressed to get worse. That in the evening she started having vomiting. Since then abdominal pain has persisted. With vomiting. Last bowel movement 5 days ago. She did call her PCP. In the ER CT scan showed a small bowel obstruction. NG tube to suction was placed. Somewhat better since then. No fever no chills. Prior abdominal surgery includes surgery in the uterus and appendectomy. Otherwise patient is fairly active. No cardiac symptoms. September 05: Patient was in the bathroom NG tube caught pulled out. Slight abdominal discomfort. Passed little flatus overnight. This morning small bowel follow-through ordered by surgery.No nausea vomiting. Small bowel follow-through done this afternoon showed some passage into the colon of the contrast. Slight decrease in the size of bowel loops possibility of resolving small bowel obstruction. Morning patient has been NPO. Discussed with the patient and at the bedside. Continue IV fluids. Drop in platelets to 144. Start stop subcu heparin. September 06: Patient tolerated clear liquid diet. Today switched over to full liquid diet by surgery. Did pass flatus. No abdominal pain. Did ambulate. Patient's and daughter at the bedside. That Active Medications Lactated Ringer's (Lactated Ringers) 1,000 mls @ 125 mls/hr IV .Q8H MINDY Last Admin: 09/06/24 08:44 Dose: 125 mls/hr Ketorolac Tromethamine (Ketorolac 15 Mg/Ml 1 Ml Vial) 15 mg IVP Q6HR PRN PRN Reason: Moderate Pain (Scale 4 to 6) Stop: 09/06/24 19:14 Last Admin: 09/05/24 16:47 Dose: 15 mg Morphine Sulfate (Morphine Sulfate 4 Mg/Ml Syringe) 4 mg IV Q4HR PRN PRN Reason: Severe Pain (Scale 7 to 10) Last Admin: 09/05/24 04:44 Dose: 4 mg Naloxone HCl (Naloxone 0.4 Mg/Ml 1 Ml Vial) 0.2 mg IV Q2M PRN PRN Reason: Opioid Reversal Ondansetron HCl (Ondansetron 4 Mg/2 Ml Vial) 4 mg IVP Q8HR PRN PRN Reason: Nausea And Vomiting Last Admin: 09/04/24 15:47 Dose: 4 mg Zolpidem Tartrate (Zolpidem 5 Mg Tab) 5 mg PO HS MINDY Last Admin: 09/05/24 20:45 Dose: 5 mg Social history: Works at the [employer]. No smoking. Alcohol sometimes. . Physical examination: VITAL SIGNS: 97.9, 104, 18, 167 x 93, 98% room air GENERAL: [BMI 24.2, lying bed, more comfortable EYES: Pupils equal. Conjunctiva jean pierre l. HEENT: External appearance of nose and ears normal, oral cavity grossly normal. NG tube to suction. NECK: JVD not raised; masses not palpable. HEART: First and second heart sounds are normal; no edema. LUNGS: Respiratory rate normal; clear to auscultation. ABDOMEN: Soft, no tenderness. Bowel Gabe sounds present. r, liver spleen not palpable, no masses palpable. PSYCH: Alert and oriented x3; mood and affect jean pierre l. MUSCULOSKELETAL:No Clubbing/cyanosis;muscles-grossly intact INVESTIGATIONS, reviewed in the clinical context: Small bowel follow-through: [September 05] passage of contrast into the colon. Probably resolving SBO September 05: White count 5.9 hemoglobin 13.1 platelets 144 Abdominal x-ray film personally reviewed by me [September 04] multiple distended loops of bowel throughout the abdomen. September 03: White count 12.6 hemoglobin 18 platelets 283 sodium 128 potassium 3.5 BUN 54 creatinine 1.[address] abdomen pelvis [September 03] multiple loops of small bowel are distended with transition points noted. Bowel dilatation 41 mm. Assessment plan: -Acute small bowel obstruction with symptoms starting about 5 days ago. Progressively getting worse. Last bowel movement was 5 days ago. Vomiting present. NG tube to suction done. Slight improvement. X-ray from today still shows small bowel obstruction. September 05: NG tube dislodged. Small bowel follow-through showing contrast into the colon. Currently n.p.o. Rayray : Tolerating clear liquids. Advance to full liquid. Passed flatus. Abdomen soft. Increase activity. -Right hip primary osteoarthritis pending surgery by Dr. Bernard Pain medication as needed -Lower lumbar herniated disc. Pain medication as needed -Leukocytosis likely from hemoconcentration. No obvious clinical evidence of infection -Hyponatremia, hypovolemia from vomiting. Saline -Acute kidney injury, combination of ATN and prerenal.: Resolved IV fluids. Follow labs -Hypokalemia, replace potassium -Hypercalcemia from volume contraction: Better IV fluids -Full code Tolerating full liquids. Increase activity. Discussed with patient at the bedside. Past Medical History Past Medical History: Musculoskeletal Disorder Additional Past Medical History / Comment(s): bulging disc, right hip pain, History of Any Multi-Drug Resistant Organisms: None Reported Past Surgical History: Appendectomy, Hysterectomy, Orthopedic Surgery Additional Past Surgical History / Comment(s): COLONOSCOPY, left knee arthroscopy, right CTS, PAIN CLINIC PROCEDURES YEARS AGO Past Anesthesia/Blood Transfusion Reactions: Postoperative Nausea & Vomiting (PONV) Past Psychological History: ADD/ADHD Smoking Status: Never smoker Past Alcohol Use History: Occasional Past Drug Use History: None Reported
--- NOTE | 2024-09-06 14:10 | P.PN ---
Subjective Progress Note Date: 09/06/24 SURGICAL PROGRESS NOTE CHIEF COMPLAINT: SBO HISTORY OF PRESENT ILLNESS: Patient is feeling better today. She reports that her abdomen is back to normal and she reports her pain has improved. She has had liquidy stools and small pieces of solid stools. Patient status post small bowel follow-through that reported small bowel transit time into the colon was 30 minutes. Given some residual distended small bowel loops in the left side of the abdomen with successful passage into the colon. Findings favor resolving/resolved small bowel obstruction. Afebrile. Patient did tolerate clear liquids PHYSICAL EXAM: VITAL SIGNS: Reviewed. GENERAL: Well-developed in no acute distress. ABDOMEN: Soft. Nondistended. Nontender NEUROLOGIC: Alert and oriented. Cranial nerves II through XII grossly intact. ASSESSMENT: 1. Small bowel obstruction improved PLAN: -Advance diet to full liquids -Encourage patient to ambulate -Continue to monitor -Further recommendations forthcoming per surgeon Physician Denial Management Representative note has been reviewed by physician. Signing provider agrees with the documented findings, assessment, and plan of care. Objective - Vital Signs Vital signs: Vital Signs Temp 97.9 F 09/06/24 13:06 Pulse 104 H 09/06/24 13:06 Resp 18 09/06/24 13:06 BP 167/93 09/06/24 13:06 Pulse Ox 98 09/06/24 13:06 FiO2 Intake & Output 09/05/24 09/06/24 09/06/24 18:59 06:59 18:59 Output Total 150 Balance -150 Output: Gastric Drainage 150 Stool 0 Other: Voiding Method Toilet # Voids 3 2 # Bowel Movements 2 - Labs CBC & Chem 7: 09/05/24 08:52 09/05/24 04:11 Assessment and Plan Assessment: 58 yo female w/ improving bowel function full liquid diet advance diet as tolerated monitor bowerl function Time with Patient: Less than 30
--- NOTE | 2024-09-06 16:07 | P.DS ---
Providers Date of admission: 09/03/24 19:13 Expected date of discharge: 09/06/24 Attending physician: Steffen Waite DO Consults: 09/03/24 19:13 Consult Physician Urgent Consulting Provider: Jc Cullen Consult Reason/Comments: Small bowel obstruction Do you want consulting provider notified?: Yes Primary care physician: Jc Cullen [facility] Course: Discharge diagnosis 1. Small bowel obstruction Hospital course This is a 58-year-old female who presented with abdominal pain for 4 days with nausea and vomiting. Her CT scan had reported small bowel obstruction. She had NG tube placed and was managed conservatively. She did have a small bowel follow-through completed that reported resolving/resolved small bowel obstruction. Patient is tolerating diet. She is having bowel movements. Her pain and abdominal distention have improved. She is afebrile. She has been up and ambulating. She is stable for discharge. Please refer to chart for any further details. Physician Anesthesia Tech note has been reviewed by physician. Signing provider agrees with the documented findings, assessment, and plan of care. Patient Condition at Discharge: Stable Plan - Discharge Summary Discharge Rx Participant: Yes New Discharge Prescriptions: Continue Lisdexamfetamine Dimesylate [Vyvanse] 30 mg PO DAILY Eszopiclone [Lunesta] 3 mg PO HS HYDROcodone/APAP 10-325MG [[place] 10-325] 1 tab PO TID PRN PRN Reason: Pain Meloxicam [Mobic] 15 mg PO DAILY Discharge Medication List Lisdexamfetamine Dimesylate [Vyvanse] 30 mg PO DAILY 05/16/24 [History] Meloxicam [Mobic] 15 mg PO DAILY 05/16/24 [History] Eszopiclone [Lunesta] 3 mg PO HS 06/13/24 [History] HYDROcodone/APAP 10-325MG [[place] 10-325] 1 tab PO TID PRN 09/03/24 [History] Follow up Appointment(s)/Referral(s): Jc Cullen MD [Primary Care Provider] - 1-2 days Ruiz Chakraborty DO [Doctor of Osteopathic Medicine] - As Needed Activity/Diet/Wound Care/Special Instructions: Regular diet Discharge Disposition: HOME SELF-CARE
== END 2024-09-06 16:30 | disposition home or self-care (01) | DRG 388 ==
LOC: EC 16:39 → 4SSUR 19:13
PROVIDERS: ADMIT Surgery; ATTEND Surgery
PROC: 0D9670Z Drainage of Stomach with Drainage Device, Via Natural or Artificial Opening (ICD-10-PCS; principal; 2024-09-03)
DX: K56.609 Unspecified intestinal obstruction, unspecified as to partial versus complete obstruction (principal); N17.0 Acute kidney failure with tubular necrosis; E87.1 Hypo-osmolality and hyponatremia; G47.00 Insomnia, unspecified; M51.26 Other intervertebral disc displacement, lumbar region; M16.11 Unilateral primary osteoarthritis, right hip; D72.828 Other elevated white blood cell count; E86.1 Hypovolemia; E87.6 Hypokalemia; E83.52 Hypercalcemia; Z79.1 Long term (current) use of non-steroidal anti-inflammatories (NSAID); Z79.899 Other long term (current) drug therapy; Z90.49 Acquired absence of other specified parts of digestive tract
CPT/HCPCS: 36415; 71045; 74019; 74177; 74250; 80048; 80053; 81003; 83605; 83690; 83735; 85025; 85610; 85730; 96361; 96374; 96375; 99285

== ENCOUNTER → 2024-11-10 | Outpatient (CLI) | payer BC ==
[2024-11-10 19:05] LABS: Basophils # (A) 0.05 X 10*3/uL (0.00-0.10); HGB 12.8 g/dL (12.0-15.0); Lymphocytes # (A) 1.68 X 10*3/uL (0.90-5.00); Lymphocytes % (A) 34.1 %; MCH 30.2 pg (27.0-32.0); MCHC 32.8 g/dL (32.0-37.0); Mean Platelet Volume 10.6 FL (9.5-12.2); Monocytes # (A) 0.38 X 10*3/uL (0.20-1.00); Monocytes % (A) 7.7 %; NRBC Per 100 WBC 0 X 10*3/uL (0.00-0.01); Neutrophils # (A) 2.71 X 10*3/uL (1.80-7.70); Platelet Count 235 X 10*3/uL (140-440); RBC 4.24 X 10*6/uL (4.10-5.20); RDW 13.1 % (11.5-14.5); WBC 4.93 X 10*3/uL (4.50-10.00)
[2024-11-10 19:08] LABS: BUN/Creat Ratio 23.86 Ratio (12.00-20.00); Blood Urea Nitrogen 16.7 mg/dL (9.0-27.0); Calcium 9.5 mg/dL (8.7-10.3); Carbon Dioxide 26.5 mmol/L (21.6-31.8); Chloride 102 mmol/L (96-109); Glucose 80 mg/dL (70-110); Potassium 4.2 mmol/L (3.5-5.5); Sodium 140 mmol/L (135-145)
[2024-11-10 19:13] LABS: INR 0.95 sec (0.93-1.11); Prothrombin Time 10.9 sec (9.9-11.9)
== END | disposition home or self-care (01) ==
LOC: LABPAT 14:29
PROVIDERS: ATTEND Orthopaedic Surgery
DX: Z01.818 Encounter for other preprocedural examination (principal); M16.11 Unilateral primary osteoarthritis, right hip; Z22.322 Carrier or suspected carrier of Methicillin resistant Staphylococcus aureus
CPT/HCPCS: 80048; 85025; 85610; 86850; 86900; 86901; 87070; 93005

== ENCOUNTER 2024-11-21 05:49 | Day surgery (SDC) | payer BC ==
[2024-11-17 16:10] VITALS: BMI 24.9
--- NOTE | 2024-11-20 14:06 | HP ---
HISTORY AND PHYSICAL DATE OF SURGERY: 11/21/2024. HISTORY OF PRESENT ILLNESS: Constance Toscano is a 59-year-old patient, seen with symptomatic right hip osteoarthritis. After having treatment options discussed, she elected to proceed with direct anterior right total hip arthroplasty. Consent regarding the procedure was obtained. PAST MEDICAL HISTORY: Osteoarthritis. PAST SURGICAL HISTORY: Appendectomy, hysterectomy. DAILY MEDICATIONS: 1. Lunesta. 2. Mobic. ALLERGIES: None. SOCIAL HISTORY: She denies tobacco use. PHYSICAL EVALUATION: Of the right hip, she has very limited range of motion with severe pain. Positive hip impingement sign. Straight-leg raise is negative. Distal neurovascular examination intact. IMAGING DATA: Right hip radiographs reveal severe osteoarthritic changes. IMPRESSION: Right hip osteoarthritis. PLAN: Direct anterior right total hip arthroplasty with same-day discharge. MMODL / IJN: [id number] /
[~2024-11-21 05:49] MED LIST changes: -LACTATED RINGERS 1,000 ML IV SCH; +TRANEXAMIC 1,000 MG/100ML-NACL 1,000 MG in SALINE 1 100ML.BAG IVPB PRN
[2024-11-21] MEDS: IV FLUID CONTINUATION 1,000 ML IV ONE ×2 (06:25→10:06)
[2024-11-21] MEDS: MELOXICAM 7.5 MG TAB PO PRN (06:26)
[2024-11-21] MEDS: ACETAMINOPHEN TAB 500 MG TAB PO PRN (06:26)
[2024-11-21] MEDS: LIDOCAINE 1% (10MG/ML) FOR IV START INTRADERMA STA (06:27)
[2024-11-21] MEDS: LACTATED RINGERS 1,000 ML IV SCH (06:27)
[2024-11-21] MEDS: DEXAMETHASONE SOD PHOSPHATE 4 MG/ML 1 ML VIAL IV ONE (06:28)
[2024-11-21] MEDS: ONDANSETRON 4 MG/2 ML VIAL IVP ONE (06:28)
[2024-11-21] MEDS: FAMOTIDINE 20 MG/2 ML VIAL IV STA (06:44)
[2024-11-21] MEDS: SCOPOLAMINE 1 MG/72 HR PATCH TRANSDERM ONE (06:44)
[2024-11-21] MEDS: MIDAZOLAM 2 MG/2 ML VIAL IV PRN (06:47)
[2024-11-21] MEDS ORDERED: ROPIVACAINE 5 MG/ML 30 ML VIAL ONE (07:23)
[2024-11-21] MEDS ORDERED: ROCURONIUM 10 MG/ML (5 ML VIAL) IV ONE (07:23)
[2024-11-21] MEDS ORDERED: NEOSTIGMINE 1 MG/ML 10 ML VIAL ONE (07:23)
[2024-11-21] MEDS ORDERED: GLYCOPYRROLATE 0.2 MG/ML 2 ML VIAL ONE (07:23)
[2024-11-21] MEDS ORDERED: fentaNYL (PF) 50 MCG/ML 2 ML AMP ONE (07:23)
[2024-11-21] MEDS ORDERED: PROPOFOL 10 MG/ML 20 ML VIAL IV ONE (07:23)
[2024-11-21] MEDS ORDERED: LIDOCAINE 1% INJ 10MG/ML (20 ML MDV) ONE (07:23)
[2024-11-21] MEDS ORDERED: SUCCINYLCHOLINE CHLORIDE 200 MG/10 ML VIAL IV ONE (07:23)
[2024-11-21] MEDS ORDERED: TRANEXAMIC 1,000 MG/100ML-NACL PREMIX BAG ONE (07:23)
[2024-11-21] MEDS ORDERED: HYDROmorphone (PF) 1 MG/ML ONE (07:23)
[2024-11-21] MEDS ORDERED: DEXAMETHASONE SOD PHOSPHATE 4 MG/ML 1 ML VIAL ONE (07:23)
[2024-11-21] MEDS: ceFAZolin 2 GM in DEXTROSE 5% IN WATER 50 ML IVPB PRN (07:28)
--- NOTE | 2024-11-21 07:28 | P.ANPRN ---
Procedure Note - Anesthesia - Nerve Block Performed Right Pedro Single Time Out Performed: Yes Date of Procedure: 11/21/24 Procedure Start Time: 06:47 Procedure Stop Time: 06:52 Location of Patient: PreOp Indication: Acute Post-Operative Pain, Analgesia, Requested by Surgeon Sedation Type: Sedate with meaningful contact maintained Preparation: Sterile Prep Position: Supine Catheter: None Needle Types: Pajunk Needle Gauge: 21 Ultrasound used to visualize needle placement: Yes Ultrasound used to observe medication spread: Yes Injectate: 0.5% Ropivacaine (see comment for volume) ([id number]) Blood Aspirated: No Pain Paresthesia on Injection Noted: No Resistance on Injection: Normal Image Stored and Saved: Yes Events: Uneventful and Well Tolerated
[2024-11-21] MEDS: LACTATED RINGERS 1,000 ML IV ONE (08:33)
[2024-11-21] MEDS ORDERED: HYDROmorphone 1 MG/ML 1 ML SYRINGE IVP PRN (08:51)
[2024-11-21] MEDS ORDERED: NALOXONE 0.4 MG/ML 1 ML VIAL IV PRN (08:51)
[2024-11-21] MEDS ORDERED: HYDROcodone/APAP 5-325MG 1 EACH TAB PO PRN (08:51)
[2024-11-21] MEDS ORDERED: HYDROmorphone 0.5 MG/0.5 ML SYRINGE IVP PRN ×2 (08:51)
[2024-11-21] MEDS ORDERED: LACTATED RINGERS 1,000 ML IV ONE (08:51)
[2024-11-21] MEDS ORDERED: ONDANSETRON 4 MG/2 ML VIAL IVP PRN (08:51)
--- NOTE | 2024-11-21 08:51 | P.OP ---
Date of Procedure: 11/21/24 Preoperative Diagnosis: Right hip osteoarthritis Postoperative Diagnosis: Right hip osteoarthritis Procedure(s) Performed: Direct anterior right total hip arthroplasty Implants: 1. DePuy [place] KA size 9 standard collar press-fit femoral stem 2. DePuy [place] 48 mm press-fit acetabular shell 3. DePuy [place] neutral polyethylene acetabular liner 32 mm ID 48 mm OD 4. Biolox delta ceramic femoral head +1 32 mm Anesthesia: GETA, regional (Erector spinae block) Surgeon: Shayne Bernard Api Product Manager #1: Steffen Gabriel Estimated Blood Loss (ml): 40 Pathology: none sent Condition: stable Disposition: PACU Indications for Procedure: 59-year-old patient seen with symptomatic right hip osteoarthritis. After having treatment options discussed, she elected to proceed with total hip arthroplasty. Operative Findings: See description of procedure Description of Procedure: The patient was taken to the operative suite. Patient underwent a general anesthetic by the department of anesthesia. Patient was then transferred to the [place] table. Patient was given preoperative IV antibiotics and TXA. Both lower extremities were placed in standard leg spars. The hip was then prepped and draped in the normal sterile orthopedic fashion. A standard anterior incision was made beginning 3 cm lateral and 1 cm distal to the ASIS extending 10 cm. Dissection was then carried down through the subcutaneous soft tissues down to the fascia overlying the tensor fascia missy. An incision was now made through the fascia. Careful dissection was taken down exposing the tensor fascia missy muscle. A Cobra retractor was now placed along the medial femoral neck and a second one along the lateral femoral neck. The venous circumflex vessels were now identified, cauterized and clipped. We identified the anterior hip capsule. An incision was made through the hip capsule along the lateral border. I performed a partial anterior capsulectomy. Retractors were now placed around the femoral neck itself. A femoral neck cut was now made with a sagittal saw. It was completed with an osteotome at the lateral neck area. The femoral head was now removed without difficulty. The extremity was now rotated to 60 of external rotation. It was locked in position. Residual labrum was now debrided out. Serial reaming was performed of the acetabulum while Behzad READ assisted holding an anterior retractor for exposure. Once we reached the appropriate size and a trial was position and fit nicely. The appropriate size was now chosen opened and made available. It was introduced into the acetabulum without difficulty. The C-arm/fluoroscopy was now brought into the operative field. We made sure we had a true AP pelvic view. We now under direct C- arm/fluoroscopy introduced into the acetabular component with appropriate version and inclination. I held the cup in appropriate position well Behzad READ used a mallet to seat the acetabular component. I noted the component now to be well seated and stable. Acetabular cup introduce her was removed. The C-arm was pulled back. An appropriate liner was introduced and clicked into position. It was felt to be stable. At this point retractors were removed. The extremity was now placed into 140 external rotation with no traction. The leg was now dropped to the ground and adducted. Appropriate retractors were now positioned along the proximal femur. We also placed our femoral look into position. Additional capsular releasing was performed to gain access to the proximal femur. We now used a box osteotome. A canal finder was now utilized. Serial broaching was now performed with the assistance of Behzad READ tapping the broaches down with a mallet while held the broach in appropriate rotation an d position. This was done until we reached the appropriate size with good overall rotational stability. Appropriate calcar planing was performed. A trial head/neck was placed into position. The hip was now reduced. The C- arm/fluoroscopy was brought back into the operative field. I obtained an AP pelvis which demonstrated adequate leg length alignment. Trial components appeared adequately sized and position the C-arm/fluoroscopy was pulled back. Retractors were repositioned and the hip was dislocated. The leg was again taken down to the ground and adducted. Appropriate retractors were repositioned as well as the femoral hook. All trial components were removed. The femoral implant was opened along with the femoral head. The femoral implant was introduced on the appropriate handle into our pre-broached area. I held the component position well Behzad READ used a mallet to seat the femoral component. The femoral component was now noted to be well seated and stable.. The femoral head was introduced with good positioning and fixation noted. Retractors were now removed. The hip was now reduced. There appeared be good positioning of the hip confirmed on intraoperative fluoroscopy. Spot films were obtained to document this. A second gram of TXA was given. Bipolar cautery had been utilized intermittently through the procedure for hemostasis. The wound was irrigated copiously with pulse lavage mechanical irrigation. The fascia was repaired with Vicryl suture. The subcutaneous soft tissues were repaired in layers with Vicryl suture. The skin was approximated with pernio/Dermabond. Sterile dressings were applied. Patient was then awakened, transferred to a bed and taken to recovery in stable condition. Behzad READ assisted with the complex procedure.
--- NOTE | 2024-11-21 09:12 | XR ---
Fluoroscopy INDICATION: Pain FINDINGS: Fluoroscopy time: 12.9 seconds. Total dose area product (DAP) in uGy*m?, mGy*cm? (or similar): 0.5760 Images obtained: 3. Images document right hip prosthesis placement IMPRESSION: 1. Documentation of fluoroscopy. [facility], , 11/21/2024 9:10 AM
[2024-11-21 09:14] VITALS: TEMP 96.8
--- NOTE | 2024-11-21 09:14 | FL ---
Fluoroscopy INDICATION: Pain FINDINGS: Fluoroscopy time: 12.9 seconds. Total dose area product (DAP) in uGy*m?, mGy*cm? (or similar): 0.5760 Images obtained: 0. Images document the procedure separate dictation. IMPRESSION: 1. Documentation of fluoroscopy. [facility], , 11/21/2024 9:12 AM
[2024-11-21] MEDS: HYDROmorphone 0.5 MG/0.5 ML SYRINGE IVP PRN (09:21)
[2024-11-21] MEDS: fentaNYL (PF) 50 MCG/ML 2 ML AMP IVP PRN (10:40)
[2024-11-21 12:07] VITALS: RESP 16
[2024-11-21 12:21] VITALS: BP 129/61; PULSE 90
[2024-11-21] MEDS: HYDROcodone/APAP 7.5-325MG 1 EACH TAB PO PRN (12:26)
[2024-11-21] MEDS: ceFAZolin 2 GM in DEXTROSE 5% IN WATER 50 ML IVPB ONE (12:35)
== END 2024-11-21 13:23 | disposition home health service (06) ==
LOC: OR 05:49
PROVIDERS: ATTEND Orthopaedic Surgery
DX: M16.11 Unilateral primary osteoarthritis, right hip (principal); G89.18 Other acute postprocedural pain; I10 Essential (primary) hypertension; J45.909 Unspecified asthma, uncomplicated; F90.9 Attention-deficit hyperactivity disorder, unspecified type; Z79.1 Long term (current) use of non-steroidal anti-inflammatories (NSAID); Z79.899 Other long term (current) drug therapy; Z79.51 Long term (current) use of inhaled steroids; Z79.891 Long term (current) use of opiate analgesic; Z79.52 Long term (current) use of systemic steroids
CPT/HCPCS: 27130; 64473; 97161; 73501; C1776; J2250; J0330; J1100; J2710; J0690; J2405; J2003; J3010; J3490; J1171 ×2; J2795; J2704; J1596